=== PATIENT | male | born 1945 | race Caucasian/White ===

== ENCOUNTER → 2016-08-31 | Outpatient (CLI) | payer MEDICARE ==
[2016-08-31 15:13] LABS: CHCM 33.9; HCT 40.8 % (39.0-53.0); HDW 2.29; HGB 14.1 gm/dL (13.0-17.5); MCH 31.7 pg (25.0-35.0); MCHC 34.5 g/dL (31.0-37.0); MCV 91.9 fL (80.0-100.0); Mean Platelet Volume 7.7; RBC 4.44 m/uL (4.30-5.90); RDW 13.2 % (11.5-15.5)
[2016-08-31 15:22] LABS: Anion Gap 13 mmol/L; Blood Urea Nitrogen 20 mg/dL (9-20); Calcium 9.6 mg/dL (8.4-10.2); Carbon Dioxide 25 mmol/L (22-30); Chloride 109 mmol/L (98-107); Glucose 96 mg/dL (74-99); Non-African American GFR(MDRD) >60 (>60 ml/min/1.73 sqM); Potassium 4.3 mmol/L (3.5-5.1); Sodium 147 mmol/L (137-145)
== END | disposition home or self-care (01) ==
LOC: LABWHC1 14:50
PROVIDERS: ATTEND Internal Medicine Clinical Cardiac Electrophysiology
DX: I25.5 Ischemic cardiomyopathy (principal)
CPT/HCPCS: 36415; 80048; 85027

== ENCOUNTER 2016-09-03 14:59 | Day surgery (SDC) | payer MEDICARE ==
[2016-08-31 11:27] VITALS: BMI 30.9
[~2016-09-03 14:59] MED LIST: LACTATED RINGERS 1,000 ML IV SCH; SODIUM CHLORIDE 0.9% 1,000 ML IV SCH; ceFAZolin 1,000 MG in SODIUM CHLORIDE 0.9% IRRIGATIO 250 ML IRRIGATION ONE; ceFAZolin 2 GM in SODIUM CHLORIDE 0.9% 100 ML IVPB ONE
[2016-09-03 15:25] VITALS: RESP 18
[2016-09-03] MEDS ORDERED: LIDOCAINE 1% INJ 10MG/ML (20 ML MDV) ONE (18:52)
[2016-09-03] MEDS ORDERED: MIDAZOLAM 2 MG/2 ML VIAL ONE (18:52)
[2016-09-03] MEDS ORDERED: KETAMINE 10 MG/ML 20 ML VIAL ONE (18:52)
[2016-09-03] MEDS ORDERED: fentaNYL (PF) 50 MCG/ML 2 ML AMP ONE (18:52)
[2016-09-03] MEDS ORDERED: PROPOFOL 10 MG/ML 20 ML VIAL IV ONE (18:52)
[2016-09-03] MEDS ORDERED: IV FLUID CONTINUATION 1,000 ML IV ONE (19:20)
[2016-09-03] MEDS ORDERED: LIDOCAINE 2% INJ 20 MG/ML SQ ONE ×2 (19:27→19:32)
[2016-09-03] MEDS ORDERED: LACTATED RINGERS 1,000 ML IV ONE (19:57)
[2016-09-03] MEDS ORDERED: IODIXANOL 320 MG/ML 100 ML IV ONE (20:18)
--- NOTE | 2016-09-03 20:24 | P.PCN ---
Preoperative Diagnosis: Procedure Right-sided ICD implant Patient requested right-sided implant instead of left-sided Indication for the procedure Coronary artery disease, old anterior wall ID status post coronary stenting several months back with ischemic cardio myopathy, anterior wall akinesis, CHF class II and frequent PVCs on stress testing, underlying hypertension and dyslipidemia ICD implant for primary prevention of sudden cardiac Procedure The right shoulder area was prepped and draped as a protocol. 1% lidocaine was used for local anesthesia. A frozen with incision was made parallel to the deltopectoral groove about 1.5 cm medial to it. The incision was carried down to the level of the pectoralis muscle. A subfascial pocket was made. The left axillary vein was accessed and a single-point under fluoroscopy and the appropriate sized to see sheath NavigatorMD single coil 59 cm DF for the lead was implanted in the RV apex. This is a [employer] model #0292, serial #[id number] The lead was secured to the underlying pectoralis fascia using 2 nonabsorbable sutures and then connected to the generator in [] [employer] GEN extended longevity model number D150, serial #[id number] Lead and the generator were placed in the subfascial pocket and the wound was closed in 3 layers and dressed per protocol DFT testing and anesthesia A shock and T wave protocol was used to induce ventricular fibrillation. This was adequately and appropriately detected at least sensitivity and successfully internally defibrillated with an 11 J shock 3 dropouts charge time 1.8 seconds sensitivity 1.5 mV no post shock noise The device was then programmed according to the [employer] programming with 3 zones of therapy Backup pacing at VVI 40 beats a minute Result Successful single-chamber ICD implantation for primary prevention of sudden cardiac in the setting of severe ischemic cardio myopathy with an ejection fraction of 35% chronic systolic dysfunction and CHF class II despite appropriate medical treatment for greater than 3 months Postoperative Diagnosis: Procedure(s) Performed: Implants: Disposition: floor Indications for Procedure: Operative Findings: Description of Procedure:
[2016-09-03] MEDS ORDERED: ACETAMINOPHEN IV (For NPO) 1,000 MG in EMPTY BAG 1 BAG IVPB ONE (20:32)
[2016-09-03] MEDS ORDERED: ACETAMINOPHEN TAB 325 MG TAB PO PRN (20:32)
[2016-09-03] MEDS ORDERED: ATORVASTATIN 80 MG TAB PO SCH (21:00)
[2016-09-03] MEDS: HYDROcodone/APAP 5-325MG 1 EACH TAB PO PRN (21:41)
[2016-09-03] MEDS: ceFAZolin 2 GM in SODIUM CHLORIDE 0.9% 100 ML IVPB SCH (21:41)
[2016-09-04] MEDS: HYDROcodone/APAP 5-325MG 1 EACH TAB PO PRN ×2 (03:06→08:31)
[2016-09-04] MEDS: ceFAZolin 2 GM in SODIUM CHLORIDE 0.9% 100 ML IVPB SCH ×3 (04:00→13:30)
--- NOTE | 2016-09-04 07:19 | XR ---
EXAMINATION TYPE: XR chest 2V DATE OF EXAM: 09/04/2016 HISTORY: Lead placement check. REFERENCE: Previous study dated 01/06/2016. FINDINGS: The lungs are overinflated. Heart size is upper limits of normal. There is some scarring or atelectasis at the left lung base. There is been interval placement of this unipolar pacemaker via a right subclavian approach. Its tip overlies the right ventricle. IMPRESSION: 1. I DO NOT SEE A POST PACEMAKER INSERTION COMPLICATION. 2. COPD. 3. SCARRING VERSUS ATELECTASIS, LEFT LUNG BASE. 4. BORDERLINE CARDIOMEGALY.
[2016-09-04] MEDS ORDERED: CARVEDILOL 3.125 MG TAB PO SCH (07:30)
--- NOTE | 2016-09-04 08:11 | P.DS ---
Providers Attending physician: Chidi Lares Primary care physician: [facility] Course: Patient is doing well from a cardiac standpoint. He denies any chest discomfort he has some mild tenderness over the right-sided ICD implant site and no chest discomfort no breathing trouble when he is lying comfortably in bed Chest x-ray is within normal limits. Vitals are stable He is afebrile 98.1F, blood pressure 142/75 mmHg, pulse rate in the 60s. Heart sounds S1 and S2 normal no murmurs no gallops Breath sounds are normal no rhonchi no crackles Abdomen is soft nontender Extremities warm no edema Impression Severe ischemic cardio myopathy that has not improved despite percutaneous revascularization and medical treatment despite the treatment. Of greater than 3-6 months Class II CHF coronary artery disease status post coronary stenting in the past Suggest Discharge home after completion of IV antibiotics and device interrogation Follow-up in the device clinic in 5 days, all instructions given Follow-up with Dr. Landers in 4-5 months Patient Condition at Discharge: Stable Plan - Discharge Summary New Discharge Prescriptions: Continue Aspirin 325 mg PO DAILY #30 tab Carvedilol [Coreg] 3.125 mg PO BID-W/MEALS #60 tab Lisinopril [Zestril] 10 mg PO DAILY #30 tab Spironolactone [Aldactone] 25 mg PO DAILY #30 tab Atorvastatin [Lipitor] 80 mg PO HS Clopidogrel [Plavix] 75 mg PO DAILY Nitroglycerin Sl Tabs [Nitrostat] 0.4 mg SL Q5M PRN PRN Reason: Chest Pain Loratadine-Pseudoeph 10-240 mg [Claritin-D 24 Hour] 1 each PO DAILY PRN PRN Reason: ALLERGY SX Discharge Medication List Aspirin 325 mg PO DAILY #30 tab 12/12/15 [Rx] Carvedilol [Coreg] 3.125 mg PO BID-W/MEALS #60 tab 12/12/15 [Rx] Lisinopril [Zestril] 10 mg PO DAILY #30 tab 12/12/15 [Rx] Spironolactone [Aldactone] 25 mg PO DAILY #30 tab 12/12/15 [Rx] Atorvastatin [Lipitor] 80 mg PO HS 01/06/16 [History] Clopidogrel [Plavix] 75 mg PO DAILY 01/06/16 [History] Nitroglycerin Sl Tabs [Nitrostat] 0.4 mg SL Q5M PRN 01/06/16 [History] Loratadine-Pseudoeph 10-240 mg [Claritin-D 24 Hour] 1 each PO DAILY PRN [History] Activity/Diet/Wound Care/Special Instructions: PATIENT EDUCATION MATERIAL Instructions following a heart rhythm device implant. 1. Keep dressing DRY for ONE week. You may cover the area with Saran or Cling Wrap, prior to a shower. 2. The dressing will be removed after one week in the Device Clinic @ [facility]. Absorbable sutures were used to close the wound. 3. Avoid raising the right arm above the shoulder level. [6 week restriction] 4. Avoid arm movements, like backscratching, rubbing the head, or pulling on a cord. (6 weeks restriction) 5. Gentle range of motion movements of the shoulder, closest to the incision should be performed to avoid a frozen shoulder. (Pendulum exercises of the shoulder) 6. The opposite arm may be used freely. 7. Avoid driving for 7 days. 8. Avoid activities such as golfing, swimming, weed whacking, lifting more than 10 pounds weight, bowling, gymnastics and weight training/lifting. (6 weeks restriction) 9. Activities such as wood chopping with an axe, pull-ups in the gymnasium, power lifting, arc-welding, being close to home induction cooktops will always be a problem. In case of any problems, please call [facility], Carmelina Tracey, @ [phone], Attention: Device Clinic f/u with dr. lares 4 months
[2016-09-04] MEDS ORDERED: LISINOPRIL 10 MG TAB PO SCH (09:00)
[2016-09-04] MEDS ORDERED: SPIRONOLACTONE 25 MG TAB PO SCH (09:00)
[2016-09-04] MEDS ORDERED: ASPIRIN 325 MG TAB PO SCH (09:00)
[2016-09-04] MEDS ORDERED: CLOPIDOGREL 75 MG TAB PO SCH (09:00)
[2016-09-04 11:54] VITALS: BP 138/76; PULSE 58; TEMP 97.9
== END 2016-09-04 15:30 | disposition home or self-care (01) ==
LOC: CATHEP 14:59 → 3OBS 20:21 → CATHEP 09-04 15:30
PROVIDERS: ATTEND Internal Medicine Clinical Cardiac Electrophysiology
DX: I25.5 Ischemic cardiomyopathy (principal); I25.10 Atherosclerotic heart disease of native coronary artery without angina pectoris; I11.0 Hypertensive heart disease with heart failure; I50.22 Chronic systolic (congestive) heart failure; Z00.6 Encounter for examination for normal comparison and control in clinical research program; I25.2 Old myocardial infarction; Z95.5 Presence of coronary angioplasty implant and graft; E78.5 Hyperlipidemia, unspecified; Z79.82 Long term (current) use of aspirin; Z79.899 Other long term (current) drug therapy
CPT/HCPCS: 93641; 33249; 71020; C1895; C1722; J2001 ×2; J2250; Q9967; J0690 ×3; J3010; J2704

== ENCOUNTER → 2019-04-28 | Outpatient (CLI) | payer MEDICARE ==
--- NOTE | 2019-04-30 21:51 | CT ---
EXAMINATION TYPE: CT brain wo con DATE OF EXAM: 04/28/2019 COMPARISON: None HISTORY: 73-year-old male headaches, fatigue, mood swings TECHNIQUE: Examination was done in axial plane without intravenous contrast. Coronal and sagittal r econstructions performed. CT DLP: 1090.4 mGycm Automated exposure control for dose reduction was used. FINDINGS: There is no evidence of acute intracranial hemorrhage, acute ischemic changes, mass, mass-effect, or extra-axial fluid collection. There is no effacement of cerebral sulci or basal subarachnoid cister ns. There is no hydrocephalus. There is no midline shift. Ge-white matter distinction is preserv ed. Mild to moderate bifrontal atrophy. Pineal gland calcifications. Rightward nasal septal deviation. Visualized paranasal sinuses and mastoid air cells appear clear. Or bits and globes are intact. IMPRESSION: [id number] bifrontal atrophy. No acute intracranial abnormality seen.
== END | disposition home or self-care (01) ==
LOC: RADCTMAIN 15:33
PROVIDERS: ATTEND Family Medicine
DX: G31.9 Degenerative disease of nervous system, unspecified (principal); R42 Dizziness and giddiness
CPT/HCPCS: 70450

== ENCOUNTER → 2019-11-22 | Outpatient (CLI) | payer MEDICARE ==
[~2019-11-22] MED LIST changes: -LACTATED RINGERS 1,000 ML IV SCH; +REGADENOSON 0.4 MG/5 ML SYRINGE IV ONE; -SODIUM CHLORIDE 0.9% 1,000 ML IV SCH; -ceFAZolin 1,000 MG in SODIUM CHLORIDE 0.9% IRRIGATIO 250 ML IRRIGATION ONE; -ceFAZolin 2 GM in SODIUM CHLORIDE 0.9% 100 ML IVPB ONE
--- NOTE | 2019-11-22 11:01 | NM ---
EXAMINATION TYPE: NM stress lexiscan cardiolite DATE OF EXAM: 11/22/2019 COMPARISON: NONE HISTORY: Chest pain TECHNIQUE: After the intravenous administration of 9.1 mCi Tc 99m Sestamibi - Cardiolite resting SPE CT images acquired 45 minutes post injection. The patient received 0.4mg Lexiscan, 25.8 mCi Tc 99m Sestamibi - Stress images obtained [address] injection FINDINGS: Review of stress and rest SPECT images demonstrates fixed defects involving the anterior, apical, inf erior, and septal portions of the myocardium with corresponding wall motion defects.. Gated analysis shows an estimated left ventricular ejection fraction of 37 %. IMPRESSION: 1. Multiple areas of fixed defects suggestive of remote infarction with no definite stress-induced re versibility. 2. Ejection fraction of only 37%.
--- NOTE | 2019-11-22 11:21 | P.STRESS ---
- Stress Test Note Stress Test Results/Findings: Exam Performed: NM stress lexiscan cardiolite Exam Date: 11/22/19 Reason for Exam: CARDIOMYOPATHY Height: 5 ft 8 in Weight: 90.718 kg Protocol: LEXISCAN CARDIOLITE Stage: N/A Duration of Exercise: N/A Resting Heart Rate: 72 Resting Blood Pressure: 159/87 Maximum Achieved Heart Rate: 87 Maximum Achieved Blood Pressure: 159/87 85% PMHR: 125 100% PMHR: 147 METS: N/A Technologist Comment: Stress Test Results/Findings: Baseline heart is 72 beats a minute, Baseline blood pressure 159/87 mmHg Baseline telemetry ECG shows sinus rhythm with ST segment or T-wave inversion inferolaterally. There is a 0.[address] depression in the lateral precordial leads Patient received Lexiscan infusion per protocol No significant change in heart rate and blood pressure No new ECG abnormalities No arrhythmias New Portion reported separately
== END | disposition home or self-care (01) ==
LOC: RADNMMAIN 07:40
PROVIDERS: ATTEND Family Medicine
DX: R94.39 Abnormal result of other cardiovascular function study (principal)
CPT/HCPCS: 93017; 78452; A9500; J2785

== ENCOUNTER → 2020-07-22 | Outpatient (CLI) | payer MEDICARE ==
--- NOTE | 2020-07-22 16:20 | CT ---
EXAMINATION TYPE: CT abdomen wo con DATE OF EXAM: 07/22/2020 HISTORY: Renal mass CT DLP: 536 mGycm. Automated Exposure Control for Dose Reduction was Utilized. TECHNIQUE: CT scan of the abdomen is performed with oral but without IV contrast. COMPARISON: NONE FINDINGS: Within the limitations of a non-contrast study, the following observations are made. LUNG BASES: Partial visualization of right coronary artery calcification and/or stent. Partial visual ization of right ventricular pacemaker/fibrillator lead. Small to tiny right pleural effusion partial ly imaged. LIVER/GB: No significant abnormality is appreciated. PANCREAS: No significant abnormality is seen. SPLEEN: No significant abnormality is seen. ADRENALS: No significant abnormality is seen. KIDNEYS: There is 1.8 cm round low dense lesion exophytically from the upper pole anteriorly left kid enid image 19 series 3 consistent with simple appearing benign thin-walled cyst. There is a larger 5.8 cm simple benign thin-walled cyst laterally from mid to lower pole level right kidney . Some central thin-walled parapelvic cyst right kidney are felt present. There is a 12 mm calculus lower pole leve l right kidney coronal image 48. No hydronephrosis noted bilaterally. No concerning solid or cystic r enal mass is seen on noncontrast CT. BOWEL: Oral contrast does not reach colonic level. No suspicious small or large bowel dilatation. LYMPH NODES: No greater than 1cm abdominal lymph nodes are appreciated. OSSEOUS STRUCTURES: Postsurgical change L4-S1 levels with posterior interpedicular rods and screws an d artificial disc material is present. OTHER: No significant additional abnormality is seen. IMPRESSION: No concerning solid or cystic renal mass identified on noncontrast CT. The renal findings as noted above. Clinical correlation advised.
== END | disposition home or self-care (01) ==
LOC: RADCTMAIN 14:51
PROVIDERS: ATTEND Family Medicine
DX: N28.89 Other specified disorders of kidney and ureter (principal)
CPT/HCPCS: 74150

== ENCOUNTER 2021-05-15 17:49 | Observation (INO) | payer MEDICARE ==
[2021-05-15 17:59] VITALS: TEMP 98.2
[2021-05-15 18:31] LABS: Basophils % (A) 0 %; Eosinophils # (A) 0.3 k/uL (0-0.7); Eosinophils % (A) 4 %; HCT 44.9 % (39.0-53.0); HGB 15.1 gm/dL (13.0-17.5); Lymphocytes # (A) 1.5 k/uL (1.0-4.8); Lymphocytes % (A) 19 %; MCH 31.2 pg (25.0-35.0); MCHC 33.6 g/dL (31.0-37.0); Mean Platelet Volume 7.7; Monocytes # (A) 0.4 k/uL (0-1.0); Monocytes % (A) 5 %; Neutrophils # (A) 5.8 k/uL (1.3-7.7); Neutrophils % (A) 71 %; Platelet Count 187 k/uL (150-450); RBC 4.83 m/uL (4.30-5.90); RDW 13.9 % (11.5-15.5); WBC 8.2 k/uL (3.8-10.6)
[2021-05-15 18:42] LABS: Albumin 4.2 g/dL (3.5-5.0); Calcium 8.9 mg/dL (8.4-10.2); Potassium 4.1 mmol/L (3.5-5.1); Total Bilirubin 0.6 mg/dL (0.2-1.3); Total Protein 7.3 g/dL (6.3-8.2)
[2021-05-15 18:48] LABS: INR 0.9 (<1.2); Prothrombin Time 10.2 sec (9.0-12.0)
[2021-05-15 18:54] LABS: Partial Thromboplastin Time 21.2 sec (22.0-30.0)
--- NOTE | 2021-05-15 18:58 | XR ---
EXAMINATION TYPE: XR chest 2V DATE OF EXAM: 05/15/2021 6:25 PM COMPARISON: 09/04/2016 TECHNIQUE: XR chest 2V Frontal and lateral views of the chest. CLINICAL INDICATION:Male, 76 years old with history of Chest Pain; FINDINGS: Lungs/Pleura: There is no evidence of pleural effusion, focal consolidation, or pneumothorax. Pulmonary vascularity: Unremarkable. Heart/mediastinum: Cardiomediastinal silhouette is unremarkable. Single-lead cardiac conduction devic e overlying the left hemithorax with lead projecting over the right ventricle. Musculoskeletal: No acute osseous pathology. Other findings: None IMPRESSION: No acute cardiopulmonary disease/process.
--- NOTE | 2021-05-15 19:43 | ED ---
General Adult HPI - General Chief complaint: Chest Pain Stated complaint: chest pain Time Seen by Provider: 05/15/21 18:07 Source: patient, RN notes reviewed, old records reviewed Mode of arrival: ambulatory Limitations: no limitations - History of Present Illness Initial comments: 76-year-old male history of CAD, history of pacemaker defibrillator placement. He is presenting with chest pain. Pain is central chest substernal. It does not radiate. It is associated with mild dyspnea. He states it is worse with deep inspiration. He denies vomiting or diaphoresis. He states he has been present for the past several days. No lower extremity pain or swelling. - Related Data Home Medications Medication Instructions Recorded Confirmed Atorvastatin [Lipitor] 80 mg PO DAILY 01/06/16 05/15/21 Aspirin EC [Ecotrin Low Dose] 81 mg PO HS 05/15/21 05/15/21 Sacubitril/Valsartan [Entresto 24 1 tab PO BID 05/15/21 05/15/21 mg-26 mg Tablet] Sertraline [Zoloft] 100 mg PO DAILY 05/15/21 05/15/21 Sertraline [Zoloft] 200 mg PO DAILY 05/15/21 05/15/21 amLODIPine [Norvasc] 2.5 mg PO DAILY 05/15/21 05/15/21 Allergies Allergy/AdvReac Type Severity Reaction Status Date / Time No Known Allergies Allergy Verified 05/15/21 20:02 Review of Systems ROS Statement: Those systems with pertinent positive or pertinent negative responses have been documented in the HPI. ROS Other: All systems not noted in ROS Statement are negative. Past Medical History Past Medical History: Hearing Disorder / Deafness, Hyperlipidemia, Hypertension, Myocardial Infarction (ID), Osteoarthritis (OA), Sleep Apnea/CPAP/BIPAP Additional Past Medical History / Comment(s): Pt admitted to [facility] 12/09/15 with nonstemi-PTCA with stent to LAD, EF 20-25% with life vest, another stent to RCA 12/31/15. Back Pain. IGOR, USES CPAP. Allergic Rhinitis. 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 Last Myocardial Infarction Date:: 12/09/15 History of Any Multi-Drug Resistant Organisms: None Reported Past Surgical History: Appendectomy, Back Surgery, Heart Catheterization With Stent, Orthopedic Surgery Additional Past Surgical History / Comment(s): 12/31/15 PTCA with stent to RCA. Other surgical hx: Back surgery x 3-fusion, bronchoscopy, colonosocpy, 12-09-15 heart cath with stent to lad, bilateral shoulder rotator cuff repairs Past Anesthesia/Blood Transfusion Reactions: No Reported Reaction Date of Last Stent Placement:: 12/31/15 Past Psychological History: Depression, Panic Disorder Smoking Status: Former smoker Past Alcohol Use History: Occasional Past Drug Use History: None Reported - Past Family History Father Family Medical History: Cancer Additional Family Medical History / Comment(s): pancreatic cancer Mother Family Medical History: Cancer, Diabetes Mellitus General Exam Limitations: no limitations General appearance: alert, in no apparent distress Head exam: Present: atraumatic, normocephalic Eye exam: Present: normal appearance, PERRL ENT exam: Present: normal exam Neck exam: Present: normal inspection. Absent: tenderness Respiratory exam: Present: normal lung sounds bilaterally. Absent: respiratory distress, wheezes Cardiovascular Exam: Present: regular rate, normal rhythm GI/Abdominal exam: Present: soft. Absent: distended, tenderness, guarding Extremities exam: Present: normal inspection, normal capillary refill Neurological exam: Present: alert, oriented X3, CN II-XII intact. Absent: motor sensory deficit Psychiatric exam: Present: normal affect, normal mood Skin exam: Present: warm, dry, intact. Absent: cyanosis, diaphoretic Course Vital Signs 05/15/21 05/15/21 05/15/21 17:56 18:59 20:00 Temperature 98.2 F Pulse Rate 70 68 66 Respiratory 16 16 16 Rate Blood Pressure 149/84 130/80 O2 Sat by Pulse 97 97 97 Oximetry EKG Findings - EKG Comments: EKG Findings:: EKG: Sinus rhythm T-wave inversion throughout the precordium V3 through V6 as well as inferior leads [address] segment elevation. Rate of 72, OK interval 182, QRS duration 94, QTC 422. Medical Decision Making - Medical Decision Making 76-year-old male presenting with a substernal chest pain which is been present for the past several days. He describes this as a squeezing sensation. He states it is worse with deep inspiration. He has a history of CAD. He denies lower extremity pain or swelling. He has a EKG showing sinus rhythm with T-wave inversion no ST segment elevation. His CBC is unremarkable, CMP is unremar kable. Initial troponin is negative. He does have an elevated d-dimer as 0.83, he's taken for CT angiography which is negative for pulmonary embolism. Given his risk factors he will be kept in observation for serial cardiac enzymes, telemetry, cardiology consultation. He will be admitted to Dr. Hawk who is aware of the patient. - Lab Data Result diagrams: 05/15/21 18:21 05/15/21 18:21 Lab Results 05/15/21 05/15/21 05/15/21 Range/Units 18:21 18:21 18:21 WBC 8.2 (3.8-10.6) k/uL RBC 4.83 (4.30-5.90) m/uL Hgb 15.1 (13.0-17.5) gm/dL Hct 44.9 (39.0-53.0) % MCV 93.0 (80.0-100.0) fL MCH 31.2 (25.0-35.0) pg MCHC 33.6 (31.0-37.0) g/dL RDW 13.9 (11.5-15.5) % Plt Count 187 (150-450) k/uL MPV 7.7 Neutrophils % 71 % Lymphocytes % 19 % Monocytes % 5 % Eosinophils % 4 % Basophils % 0 % Neutrophils # 5.8 (1.3-7.7) k/uL Lymphocytes # 1.5 (1.0-4.8) k/uL Monocytes # 0.4 (0-1.0) k/uL Eosinophils # 0.3 (0-0.7) k/uL Basophils # 0.0 (0-0.2) k/uL PT 10.2 (9.0-12.0) sec INR 0.9 (<1.2) APTT 21.2 L (22.0-30.0) sec D-Dimer 0.83 H (<0.60) mg/L FEU Sodium 140 (137-145) mmol/L Potassium 4.1 (3.5-5.1) mmol/L Chloride 106 (98-107) mmol/L Carbon Dioxide 25 (22-30) mmol/L Anion Gap 9 mmol/L BUN 22 H (9-20) mg/dL Creatinine 0.97 (0.66-1.25) mg/dL Est GFR (CKD-EPI)AfAm 89 (>60 ml/min/1.73 sqM) Est GFR (CKD-EPI)NonAf 77 (>60 ml/min/1.73 sqM) Glucose 89 (74-99) mg/dL Calcium 8.9 (8.4-10.2) mg/dL Magnesium 2.0 (1.6-2.3) mg/dL Total Bilirubin 0.6 (0.2-1.3) mg/dL AST 22 (17-59) U/L ALT 13 (4-49) U/L Alkaline Phosphatase 96 (38-126) U/L Troponin I (0.000-0.034) ng/mL Total Protein 7.3 (6.3-8.2) g/dL Albumin 4.2 (3.5-5.0) g/dL 05/15/21 Range/Units 18:21 WBC (3.8-10.6) k/uL RBC (4.30-5.90) m/uL Hgb (13.0-17.5) gm/dL Hct (39.0-53.0) % MCV (80.0-100.0) fL MCH (25.0-35.0) pg MCHC (31.0-37.0) g/dL RDW (11.5-15.5) % Plt Count (150-450) k/uL MPV Neutrophils % % Lymphocytes % % Monocytes % % Eosinophils % % Basophils % % Neutrophils # (1.3-7.7) k/uL Lymphocytes # (1.0-4.8) k/uL Monocytes # (0-1.0) k/uL Eosinophils # (0-0.7) k/uL Basophils # (0-0.2) k/uL PT (9.0-12.0) sec INR (<1.2) APTT (22.0-30.0) sec D-Dimer (<0.60) mg/L FEU Sodium (137-145) mmol/L Potassium (3.5-5.1) mmol/L Chloride (98-107) mmol/L Carbon Dioxide (22-30) mmol/L Anion Gap mmol/L BUN (9-20) mg/dL Creatinine (0.66-1.25) mg/dL Est GFR (CKD-EPI)AfAm (>60 ml/min/1.73 sqM) Est GFR (CKD-EPI)NonAf (>60 ml/min/1.73 sqM) Glucose (74-99) mg/dL Calcium (8.4-10.2) mg/dL Magnesium (1.6-2.3) mg/dL Total Bilirubin (0.2-1.3) mg/dL AST (17-59) U/L ALT (4-49) U/L Alkaline Phosphatase (38-126) U/L Troponin I <0.012 (0.000-0.034) ng/mL Total Protein (6.3-8.2) g/dL Albumin (3.5-5.0) g/dL Disposition Clinical Impression: Chest pain Disposition: ADMITTED IP TO THIS [facility] Condition: Stable Is patient prescribed a controlled substance at d/c from ED?: No Referrals: Zayra Hwak DO [Primary Care Provider] - 1-2 days Decision to Admit Reason: Admit from EC Decision Date: 05/15/21 Decision Time: 21:07
--- NOTE | 2021-05-15 20:52 | CT ---
EXAMINATION TYPE: CT angio chest DATE OF EXAM: 05/15/2021 COMPARISON: None HISTORY: Chest pain, MINDY, positive D-dimer. CT DLP: 420.1 mGycm Automated exposure control for dose reduction was used. CONTRAST: Performed with IV Contrast, patient injected with 100 mL of Isovue 370. Images obtained from the thoracic inlet to the diaphragm with IV contrast. There are Three-D postproc essed images. There is some mild interstitial density at the posterior lung bases. There is mild atelectasis at the lung bases. There is small amount of fluid in the right major fissure. There is no mediastinal adenopathy. Thoracic aorta is atheromatous. No aneurysm. There is normal cont rast opacification of the pulmonary arteries. There are no filling defects. The ascending aorta measu res 3.5 cm. The thoracic spine is intact. No compression fracture. There is multilevel anterior bridging osteophy te formation. The sternum is intact. There are no hilar masses. The upper abdominal soft tissues appear intact. IMPRESSION: There is small loculated right pleural effusion. Interstitial mild infiltrate in subsegmental atelect asis at the lung bases. No evidence of pulmonary embolism. Mild pulmonary emphysema. No suspicious pulmonary mass.
[2021-05-15] MEDS ORDERED: NALOXONE 0.4 MG/ML 1 ML VIAL IV PRN (21:04)
[2021-05-15] MEDS ORDERED: ACETAMINOPHEN TAB 325 MG TAB PO PRN (21:04)
[2021-05-16 06:02] VITALS: RESP 16
[2021-05-16 08:29] VITALS: BP 158/87; PULSE 67
[2021-05-16] MEDS ORDERED: amLODIPine 2.5 MG TAB PO SCH (09:00)
[2021-05-16] MEDS ORDERED: SACUBITRIL/VALSARTAN 24 MG-26 MG TABLET PO SCH (09:00)
[2021-05-16] MEDS ORDERED: SERTRALINE 100 MG TAB PO SCH (09:00)
--- NOTE | 2021-05-16 12:42 | P.CRDCN ---
History of Present Illness History of present illness: This is Dr. Lares dictating a consult on this patient The patient was interviewed and examined IMPRESSION / ASSESSMENT: Atypical chest discomfort Normal cardiac enzymes Right-sided pleural effusion, small No evidence for pulmonary embolism PLAN: From a cardiac standpoint continue cardiac medications check hemoglobin A1c and lipids He is a mild current myopathy ICD in situ From a) hemoglobin home today in follow-up with az as an outpatient HPI Patient presented with right-sided chest discomfort which is pleuritic in nature His d-dimer was mildly elevated but the computed tomography scan did not show any evidence for pulmonary embolism A small right-sided pleural effusion was noted with bibasilar atelectasis versus infiltrate 3 cardiac enzymes are normal No new EKG abnormalities noted Patient has known history of coronary artery disease ROS: No fever chills or rigors, no cough, phlegm or expectoration, no nausea, vomiting or diarrhea, no hematuria, dysuria, no musculoskeletal complaints, no strokes or seizures, no skin lesions. EXAMINATION: Heart rate 60 beats minute, normal respirations resting comfortably in a chair Blood pressure normal 124/61 mmHg Normal heart sounds no murmurs or gallop drop Normal breath sounds Extremities warm No edema REVIEW OF LABS, ECG & MEDICAL DATA Normal white count 8.2 thousand, hemoglobin 15, platelet count 187,000 D-dimer 0.8, mildly elevated Normal electrolytes Normal renal function Normal troponins 3 Past Medical History Past Medical History: Hearing Disorder / Deafness, Hyperlipidemia, Hypertension, Myocardial Infarction (DC), Osteoarthritis (OA), Sleep Apnea/CPAP/BIPAP Additional Past Medical History / Comment(s): Pt admitted to [facility] 12/09/15 with nonstemi-PTCA with stent to LAD, EF 20-25% with life vest, another stent to RCA 12/31/15. Back Pain. IGOR, USES CPAP. Allergic Rhinitis. 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 Last Myocardial Infarction Date:: 12/09/15 History of Any Multi-Drug Resistant Organisms: None Reported Past Surgical History: Appendectomy, Back Surgery, Heart Catheterization With Stent, Orthopedic Surgery Additional Past Surgical History / Comment(s): 12/31/15 PTCA with stent to RCA. Other surgical hx: Back surgery x 3-fusion, bronchoscopy, colonosocpy, 6 heart cath with stent to lad, bilateral shoulder rotator cuff repairs Past Anesthesia/Blood Transfusion Reactions: No Reported Reaction Date of Last Stent Placement:: 12/31/15 Past Psychological History: Depression, Panic Disorder Additional Psychological History / Comment(s): [place] [facility] [place] Smoking Status: Former smoker Past Alcohol Use History: Occasional Additional Past Alcohol Use History / Comment(s): quit smoking 1995, STARTED SMOKING AGE 16, SMOKED -2 1/2 to 3 PPD Past Drug Use History: None Reported - Past Family History Father Family Medical History: Cancer Additional Family Medical History / Comment(s): pancreatic cancer Mother Family Medical History: Cancer, Diabetes Mellitus Medications and Allergies Home Medications Medication Instructions Recorded Confirmed Type Atorvastatin [Lipitor] 80 mg PO DAILY 01/06/16 05/15/21 History Aspirin EC [Ecotrin Low Dose] 81 mg PO HS 05/15/21 05/15/21 History Sacubitril/Valsartan [Entresto 24 1 tab PO BID 05/15/21 05/15/21 History mg-26 mg Tablet] Sertraline [Zoloft] 100 mg PO DAILY 05/15/21 05/15/21 History Sertraline [Zoloft] 200 mg PO DAILY 05/15/21 05/15/21 History amLODIPine [Norvasc] 2.5 mg PO DAILY 05/15/21 05/15/21 History Allergies Allergy/AdvReac Type Severity Reaction Status Date / Time No Known Allergies Allergy Verified 05/15/21 20:02 Physical Exam Vitals: Vital Signs Temp Pulse Pulse Resp BP BP Pulse Ox 05/16/21 08:28 67 16 158/87 98 05/16/21 05:59 65 16 143/90 98 05/16/21 04:25 64 18 124/61 95 05/16/21 03:21 60 18 114/49 96 05/15/21 23:26 67 20 138/60 95 05/15/21 20:00 66 16 130/80 97 05/15/21 18:59 68 16 149/84 97 05/15/21 17:56 98.2 F 70 16 97 Intake and Output 05/15/21 05/16/21 05/16/21 22:59 06:59 14:59 Other: Weight 81.647 kg Results 05/15/21 18:21 05/15/21 18:21 Cardiac Enzymes 05/15/21 05/15/21 05/16/21 Range/Units 18:21 18:21 00:00 AST 22 (17-59) U/L Troponin I <0.012 <0.012 (0.000-0.034) ng/mL 05/16/21 Range/Units 07:00 AST (17-59) U/L Troponin I <0.012 (0.000-0.034) ng/mL Coagulation 05/15/21 Range/Units 18:21 PT 10.2 (9.0-12.0) sec APTT 21.2 L (22.0-30.0) sec CBC 05/15/21 Range/Units 18: WBC 8.2 (3.8-10.6) k/uL RBC 4.83 (4.30-5.90) m/uL Hgb 15.1 (13.0-17.5) gm/dL Hct 44.9 (39.0-53.0) % Plt Count 187 (150-450) k/uL Comprehensive Metabolic Panel 05/15/21 Range/Units 18: Sodium 140 (137-145) mmol/L Potassium 4.1 (3.5-5.1) mmol/L Chloride 106 (98-107) mmol/L Carbon Dioxide 25 (22-30) mmol/L BUN 22 H (9-20) mg/dL Creatinine 0.97 (0.66-1.25) mg/dL Glucose 89 (74-99) mg/dL Calcium 8.9 (8.4-10.2) mg/dL AST 22 (17-59) U/L ALT 13 (4-49) U/L Alkaline Phosphatase 96 (38-126) U/L Total Protein 7.3 (6.3-8.2) g/dL Albumin 4.2 (3.5-5.0) g/dL Intake and Output 05/15/21 05/16/21 05/16/21 22:59 06:59 14:59 Other: Weight 81.647 kg 05/15/21 18:21 05/15/21 18:21
--- NOTE | 2021-05-16 16:31 | P.HPIM ---
History of Present Illness H&P Date: 05/16/21 Chief Complaint: Chest pain H&P and Discharge Summary This is a 76-year-old gentleman with past medical history of hypertension, hyperlipidemia, CAD, [place], cardiac stents, cardiomyopathy with EF of 20-25%, AICD, deafness, obstructive sleep apnea with outpatient CPAP, panic disorder, former nicotine dependence presented to the ER with chest "squeezing" to the right side of midsternum, worsened with deep inspiration, muscle tenderness near/around pacemaker site. Denies heavy lifting or pulling, denies trauma,fall. Denies diaphoresis, denies lightheadedness, dizziness or shortness of breath-. Denies focal deficits. Denies syncope .Denies cough or congestion. Denies phlegm production. Denies fever or chills. Denies nausea vomiting or diarrhea. Denies abdominal pain .Serial cardiac enzymes normal, EKG reviewed by cardiology- reporting sinus rhythm with no new noted abnormalities ,d-dimer mildly elevated, chest CTA reported no evidence of PE, mild atelectasis at the bases, small amount of fluid in the right major fissure. Vital signs stable, afebrile, normal WBC, maintaining O2 sats in the high 90s on room air. Normal electrolytes. Renal function normal. Review of Systems ROS Statement: Those systems with pertinent positive or pertinent negative responses have been documented in the HPI. ROS Other: All systems not noted in ROS Statement are negative. Past Medical History Past Medical History: Hearing Disorder / Deafness, Hyperlipidemia, Hypertension, Myocardial Infarction (IL), Osteoarthritis (OA), Sleep Apnea/CPAP/BIPAP Additional Past Medical History / Comment(s): Pt admitted to [facility] 12/09/15 with nonstemi-PTCA with stent to LAD, EF 20-25% with life vest, another stent to RCA 12/31/15. Back Pain. IGOR, USES CPAP. Allergic Rhinitis. 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 Last Myocardial Infarction Date:: 12/09/15 History of Any Multi-Drug Resistant Organisms: None Reported Past Surgical History: Appendectomy, Back Surgery, Heart Catheterization With Stent, Orthopedic Surgery Additional Past Surgical History / Comment(s): 12/31/15 PTCA with stent to RCA. Other surgical hx: Back surgery x 3-fusion, bronchoscopy, colonosocpy, 12-09-15 heart cath with stent to lad, bilateral shoulder rotator cuff repairs Past Anesthesia/Blood Transfusion Reactions: No Reported Reaction Date of Last Stent Placement:: 12/31/15 Past Psychological History: Depression, Panic Disorder Additional Psychological History / Comment(s): [place] [facility] [place] Smoking Status: Former smoker Past Alcohol Use History: Occasional Additional Past Alcohol Use History / Comment(s): quit smoking 1995, STARTED SMOKING AGE 16, SMOKED -2 1/2 to 3 PPD Past Drug Use History: None Reported - Past Family History Father Family Medical History: Cancer Additional Family Medical History / Comment(s): pancreatic cancer Mother Family Medical History: Cancer, Diabetes Mellitus Medications and Allergies Home Medications Medication Instructions Recorded Confirmed Type Atorvastatin [Lipitor] 80 mg PO DAILY 01/06/16 05/15/21 History Aspirin EC [Ecotrin Low Dose] 81 mg PO HS 05/15/21 05/15/21 History Sacubitril/Valsartan [Entresto 24 1 tab PO BID 05/15/21 05/15/21 History mg-26 mg Tablet] Sertraline [Zoloft] 100 mg PO DAILY 05/15/21 05/15/21 History Sertraline [Zoloft] 200 mg PO DAILY 05/15/21 05/15/21 History amLODIPine [Norvasc] 2.5 mg PO DAILY 05/15/21 05/15/21 History Diclofenac Sodium Gel [Voltaren 2 gm TOPICAL QID #100 gm 05/16/21 Rx Gel] Allergies Allergy/AdvReac Type Severity Reaction Status Date / Time No Known Allergies Allergy Verified 05/15/21 20:02 Physical Exam Vitals: Vital Signs Temp Pulse Pulse Resp BP BP Pulse Ox 05/16/21 08:28 67 16 158/87 98 05/16/21 05:59 65 16 143/90 98 05/16/21 04:25 64 18 124/61 95 05/16/21 03:21 60 18 114/49 96 05/15/21 23:26 67 20 138/60 95 05/15/21 20:00 66 16 130/80 97 05/15/21 18:59 68 16 149/84 97 05/15/21 17:56 98.2 F 70 16 97 Intake and Output 03/17/22 03/18/22 03/18/22 22:59 06:59 14:59 Other: Weight 81.647 kg PHYSICAL EXAM: VITAL SIGNS: [As above] GENERAL: Sitting up in chair, no acute distress HEENT: Conjunctivae normal. eyes normal. MMM NECK: No JVD. No thyroid enlargement. No LNs CARDIOVASCULAR: S1, S2 regular. No murmur RESPIRATION: Breath sounds diminished in the bases. No rhonchi or crackles. No bronchial breathing. ABDOMEN: Soft, nontender . No guarding. no masses palpable. No ascites, No hepatosplenomegaly.Bowel sounds heard. LEGS: No edema. no swelling PSYCHIATRY: Alert and oriented X3, mood and affect normal. NERVOUS SYSTEM: Cranial N 2-12 grossly normal. Moves all 4 limbs. No focal deficits. Strength and sensation grossly intact. Skin: Warm and dry, no rash. Results CBC & Chem 7: 05/15/21 18:21 05/15/21 18:21 Labs: Abnormal Lab Results - Last 24 Hours (Table) 05/15/21 05/15/21 Range/Units 18:21 18:21 APTT 21.2 L (22.0-30.0) sec D-Dimer 0.83 H (<0.60) mg/L FEU BUN 22 H (9-20) mg/dL Thrombosis Risk Factor Assmnt - Choose All That Apply Each Risk Factor Represents 3 Points: Age 75 years or older Thrombosis Risk Factor Assessment Total Risk Factor Score: 3 Thrombosis Risk Factor Assessment Level: Moderate Risk Assessment and Plan Assessment: Chest pain, atypical as per cardiology. possibly muscle skeletal - over/near pacemaker site . Ischemic cardiomyopathy, EF 20-25%, history of AICD Chronic systolic CHF Obstructive sleep apnea Gastroesophageal reflux disease Atelectasis Panic disorder Prior nicotine dependence Plan: Continue on current medication regime ,monitoring and symptomatic treatment. Patient will be discharged home today in stable condition with guarded prognosis pending final DC recommendations and clearance per cardiology. Discharge Medication List Atorvastatin [Lipitor] 80 mg PO DAILY 01/06/16 [History] Aspirin EC [Ecotrin Low Dose] 81 mg PO HS 05/15/21 [History] Sacubitril/Valsartan [Entresto 24 mg-26 mg Tablet] 1 tab PO BID 05/15/21 [History] Sertraline [Zoloft] 100 mg PO DAILY 05/15/21 [History] Sertraline [Zoloft] 200 mg PO DAILY 05/15/21 [History] amLODIPine [Norvasc] 2.5 mg PO DAILY 05/15/21 [History] Diclofenac Sodium Gel [Voltaren Gel] 2 gm TOPICAL QID #100 gm 05/16/21 [Rx] The impression and plan of care has been dictated as directed. : I performed a history and examination of this patient, discussed the same with the dictator. I agree with the dictator's note ,documented as a scribe. Any additional findings or plans will be noted.
[2021-05-16] MEDS ORDERED: ATORVASTATIN 80 MG TAB PO SCH (21:00)
[2021-05-16] MEDS ORDERED: ASPIRIN 81 MG PO SCH (21:00)
== END 2021-05-16 10:16 ==
LOC: EC 17:49 → 6NMEDSUR 21:05
PROVIDERS: ADMIT Family Medicine; ATTEND Family Medicine
DX: R07.2 Precordial pain (principal); I11.0 Hypertensive heart disease with heart failure; I50.22 Chronic systolic (congestive) heart failure; I25.5 Ischemic cardiomyopathy; G47.33 Obstructive sleep apnea (adult) (pediatric); K21.9 Gastro-esophageal reflux disease without esophagitis; J98.11 Atelectasis; F41.0 Panic disorder [episodic paroxysmal anxiety]; Z87.891 Personal history of nicotine dependence; J43.9 Emphysema, unspecified; I25.10 Atherosclerotic heart disease of native coronary artery without angina pectoris; R79.89 Other specified abnormal findings of blood chemistry; M54.9 Dorsalgia, unspecified; J30.9 Allergic rhinitis, unspecified; F32.A Depression, unspecified; M19.90 Unspecified osteoarthritis, unspecified site; H91.90 Unspecified hearing loss, unspecified ear; E78.5 Hyperlipidemia, unspecified; I25.2 Old myocardial infarction; Z79.899 Other long term (current) drug therapy; Z79.82 Long term (current) use of aspirin; Z77.090 Contact with and (suspected) exposure to asbestos; Z95.810 Presence of automatic (implantable) cardiac defibrillator; Z95.5 Presence of coronary angioplasty implant and graft; Z80.0 Family history of malignant neoplasm of digestive organs; Z83.3 Family history of diabetes mellitus
CPT/HCPCS: 99285; 36415; 93005; 85379; 80053; 83735; 84484 ×2; 85025; 85610; 85730; 71046; 71275; G0378 ×2; Q9967

== ENCOUNTER → 2021-07-29 | Outpatient (CLI) | payer MEDICARE ==
--- NOTE | 2021-07-29 12:45 | FL ---
EXAMINATION TYPE: FL barium swallow w video DATE OF EXAM: 07/29/2021 CLINICAL HISTORY: 76-year-old male R13.10, dysphagia, trouble swallowing and food sticking in throat. TECHNIQUE: Deglutition study is performed utilizing thin liquid barium, nectar thick liquid barium, barium thick pudding, and barium coated cracker. COMPARISON: None. Total fluoroscopy time: 1 minute 9 seconds. Total images: None. Real-time fluoroscopy support was provided to speech pathology. FINDINGS: Bulky anterior endplate bridging spondylosis is present particularly at C3-C4 and C6-C7. Findings sug gest DISH. The bulky anterior spurring at C3-C4 prevents epiglottic inversion due to physical obstruc tion. This also results in prominent posterior impression on the hypopharynx. Episodes of penetration are noted with multiple consistencies. No aspiration is seen. IMPRESSION: 1. DISH but with bulky anterior endplate spondylosis at C3-C4. This prevents epiglottic inversion due to prasad physical obstruction and causes a prominent posterior impression on to the back wall of the hypopharynx. Additional bulky spondylosis anteriorly at C6-C7 also presses onto the back wall of the upper cervical esophagus. 2. Episodes of transient penetration with multiple consistencies. No aspiration. Please refer to speech pathology report for further details and recommendations.
== END | disposition home or self-care (01) ==
LOC: RADFLMAIN 10:47
PROVIDERS: ATTEND Otolaryngology
DX: M47.812 Spondylosis without myelopathy or radiculopathy, cervical region (principal)
CPT/HCPCS: 74230

== ENCOUNTER → 2022-02-02 | Outpatient (CLI) | payer MEDICARE ==
[2022-02-02 14:59] LABS: African American GFR (CKD) 72.5 (60.0-200.0); Anion Gap 10.6 mmol/L (10.00-18.00); BUN/Creat Ratio 14.39 Ratio (12.00-20.00); Blood Urea Nitrogen 16.4 mg/dL (9.0-27.0); Carbon Dioxide 28.1 mmol/L (20.0-27.5); Magnesium 2.1 mg/dL (1.5-2.4); Non-African American GFR(CKD) 62.6 (60.0-200.0); Potassium 5.5 mmol/L (3.5-5.5)
== END | disposition home or self-care (01) ==
LOC: LABWHC1 09:55
PROVIDERS: ATTEND Internal Medicine Interventional Cardiology
DX: I10 Essential (primary) hypertension (principal)
CPT/HCPCS: 36415; 80048; 83735

== ENCOUNTER → 2023-01-01 | Outpatient (CLI) | payer MEDICARE ==
[2023-01-01 16:26] LABS: C Reactive Protein 0.5 mg/dL (0.00-0.80)
[2023-01-01 17:17] LABS: Albumin 4.1 d/dL (3.8-4.9); Protein, Total 6.6 d/dL (6.2-8.2)
== END | disposition home or self-care (01) ==
LOC: LABWHC1 10:09
PROVIDERS: ATTEND Psychiatry & Neurology Neurology
DX: G62.9 Polyneuropathy, unspecified (principal); R53.1 Weakness
CPT/HCPCS: 36415; 82550; 82607; 82747; 83036; 84165; 85652; 86140; 86334; 86618

== ENCOUNTER → 2023-01-14 | Outpatient (CLI) | payer MEDICARE ==
--- NOTE | 2023-01-14 13:47 | CT ---
EXAMINATION TYPE: CT cervical spine wo con DATE OF EXAM: 01/14/2023 COMPARISON: None HISTORY: spinal stenosis CT DLP: 525.[address] of the cervical spine was performed with bone and soft tissue window settings submitted . Coronal and sagittal reconstruction is obtained. There is normal alignment and prevertebral soft tissues. I do not see evidence for fracture or subluxation. The lung apices are clear. C2-3: Mild degenerative disc space narrowing. Ventral and dorsal spondylosis. No central stenosis or herniation. C3-4: Mild degenerative disc space narrowing. Large anterior osteophyte. Posterior disc bulge with mi ld effacement ventral thecal sac. No evidence for herniation or central stenosis.. Degenerative choi e of the cervical apophyseal joints resulting in right foraminal encroachment. C4-5: Moderate degenerative disc space narrowing. Posterior disc bulges partially capsulated spur res ulting disc endplate complex. Mild effacement of the ventral thecal sac. Left foraminal encroachment. No evidence for central stenosis. C5-6:Moderate degenerative disc space narrowing. Posterior disc bulges partially capsulated spur resu lting disc endplate complex. Mild effacement of the ventral thecal sac. Left foraminal encroachment. No evidence for central stenosis. C6-7:Moderate degenerative disc space narrowing. Posterior disc bulges partially capsulated spur resu lting disc endplate complex. Mild effacement of the ventral thecal sac. No significant foraminal encr oachment. No evidence for central stenosis. C7-T1: Within normal limits IMPRESSION: 1. Findings compatible with diffuse idiopathic skeletal hyperostosis 2. Multilevel degenerative disc space narrowing and disc bulging and partially encapsulating spur. No evidence for central stenosis. Varying degrees of foraminal encroachment.
== END | disposition home or self-care (01) ==
LOC: RADCTMAIN 11:08
PROVIDERS: ATTEND Psychiatry & Neurology Neurology
DX: M48.02 Spinal stenosis, cervical region (principal); M50.321 Other cervical disc degeneration at C4-C5 level; R29.2 Abnormal reflex
CPT/HCPCS: 72125

== ENCOUNTER → 2023-06-25 | Outpatient (CLI) | payer MEDICARE ==
--- NOTE | 2023-06-25 18:47 | FL ---
EXAMINATION TYPE: FL barium swallow w video DATE OF EXAM: 06/25/2023 CLINICAL HISTORY: 78-year-old male R13.14, Dysphagia. TECHNIQUE: Deglutition study is performed utilizing thin liquid barium, nectar thick liquid barium, barium thick pudding, and barium coated cracker. Total fluoroscopy time 2 minutes 5 seconds. Total images: None. Real-time fluoroscopy support was provided to speech pathology. Total DAP: 50 mGycm2. COMPARISON: None. FINDINGS: There is severe bridging spondylosis anteriorly throughout the cervical spine. Prolific, space occupy ing anterior spurring is present at C2-C3 which prevents epiglottic inversion. There is aspiration of thin liquids and pureed consistencies along with penetration with all consiste ncies. Mild residuals remaining. IMPRESSION: 1. Extensive anterior bridging bone along the cervical spine. Large space-occupying anterior spurring at C2-C3 prevents epiglottic inversion. 2. This contributes to aspiration of thin liquids and pureed consistencies. Penetration with all cons istencies. Mild residuals. Please refer to speech therapist notes for further details if necessary.
== END | disposition home or self-care (01) ==
LOC: RADFLMAIN 10:51
PROVIDERS: ATTEND Otolaryngology
DX: R13.14 Dysphagia, pharyngoesophageal phase (principal)
CPT/HCPCS: 74230

== ENCOUNTER → 2023-07-19 | Outpatient (CLI) | payer MEDICARE ==
--- NOTE | 2023-07-22 11:48 | CT ---
EXAMINATION TYPE: CT cervical spine wo con CT DLP: 554.5 mGycm, Automated exposure control for dose reduction was used. DATE OF EXAM: 07/19/2023 2:18 PM COMPARISON: 01/14/2023. CLINICAL INDICATION:Male, 78 years old with history of M48.12 ANKYLOSING HYPEROSTOSIS; PHH, neck pain TECHNIQUE: Axial CT images from the skull base to the inferior aspect of T2 we obtained without intra venous contrast. Coronal and sagittal reformatted images were also reviewed. Contrast used: mL of , (if blank None) Oral contrast used: (if blank None) FINDINGS: Fracture: None. Osseous structures: Multilevel degenerative disc disease changes with endplate spurring and disc oste ophyte complex's. Severe anterior osteophytes along the spine impress upon the esophagus. Vertebral alignment: Alignment within normal limits. Spinal canal/Neural Foramina: No evidence of significant spinal canal narrowing. No evidence for sign ificant neural foraminal stenosis. Neck soft tissues: Prevertebral soft tissues are within normal limits. Other: The airway is patent. The lung apices are clear. Cardiac conduction device leads visualized. M ild atherosclerosis of the carotid bifurcations. IMPRESSION: 1. No evidence of cervical spine fracture. 2. Severe multilevel degenerative disc disease. With large osteophyte impressing upon the posterior a spect of the esophagus. 2. No evidence of significant spinal canal no neural foraminal stenosis.
== END | disposition home or self-care (01) ==
LOC: RADCTMAIN 14:03
PROVIDERS: ATTEND Otolaryngology
DX: M50.30 Other cervical disc degeneration, unspecified cervical region (principal); M48.12 Ankylosing hyperostosis [Forestier], cervical region; M25.78 Osteophyte, vertebrae
CPT/HCPCS: 72125

== ENCOUNTER 2023-07-23 12:28 | Emergency (ER) | payer MEDICARE ==
[2023-07-23 13:02] VITALS: TEMP 98.2
--- NOTE | 2023-07-23 13:14 | ED ---
Dizziness HPI - General Source: patient, RN notes reviewed Mode of arrival: ambulatory Limitations: no limitations <Angelica Soriano - Last Filed: 07/23/23 13:14> <Obdulio Schroeder - Last Filed: 07/23/23 18:34> - General Chief Complaint: Dizziness Stated Complaint: Fall-Dizziness Time Seen by Provider: 07/23/23 13:12 - History of Present Illness Initial Comments: Quick [id number] male presenting with dizziness x 1 day. States he stopped taking all of his medication for months and decided to restart all of h is medications yesterday. His niece states she suspects he has doubled up on some medications. Patient states he is on medications for chronic back pain, neuropathy, hypertension, and CHF (Angelica Soriano) Dictation was produced using [employer] dictation software. please excuse any grammatical, word or spelling errors. Chief Complaint: 78-year-old male who presents to the ER for back pain and dizziness History of Present Illness: Patient 78-year-old male states that he is here today for feeling dizzy. He describes his dizziness as like feeling hung over. Patient was bored yesterday decided to take some of his medications. He did not realize that some of his medications were duplicates. He has not taken his medications in several days. Patient also has secondary complaint of lower back pain. Patient denies any pain. He has history of pacemaker. Denies any hi story of cardiomyopathy. Patient has known history of coronary artery disease. The ROS documented in this emergency department record has been reviewed and confirmed by me. Those systems with pertinent positive or negative responses have been documented in the HPI. All other systems are other negative and/or noncontributory. (Obdulio Schroeder) - Related Data Home Medications Medication Instructions Recorded Confirmed Cyclobenzaprine [Flexeril] 10 mg PO HS 07/23/23 07/23/23 DULoxetine HCL [Cymbalta] 30 mg PO DAILY 07/23/23 07/23/23 Furosemide [Lasix] 20 mg PO DAILY 07/23/23 07/23/23 Gabapentin [Neurontin] 400 mg PO BID 07/23/23 07/23/23 Loratadine [Claritin] 10 mg PO DAILY 07/23/23 07/23/23 Prazosin HCl [Minipress] 2 mg PO HS 07/23/23 07/23/23 Sacubitril/Valsartan [Entresto 97 1 tab PO BID 07/23/23 07/23/23 mg-103 mg Tablet] Spironolactone [Aldactone] 25 mg PO DAILY 07/23/23 07/23/23 Allergies Allergy/AdvReac Type Severity Reaction Status Date / Time No Known Allergies Allergy Verified 07/23/23 15:48 Review of Systems ROS Other: All systems not noted in ROS Statement are negative. <Angelica Soriano - Last Filed: 07/23/23 13:14> ROS Other: All systems not noted in ROS Statement are negative. <Obdulio Schroeder - Last Filed: 07/23/23 18:34> ROS Statement: Those systems with pertinent positive or pertinent negative responses have been documented in the HPI. Past Medical History Past Medical History: Hearing Disorder / Deafness, Hyperlipidemia, Hypertension, Myocardial Infarction ([place]), Osteoarthritis (OA), Sleep Apnea/CPAP/BIPAP Additional Past Medical History / Comment(s): Pt admitted to [facility] 12/09/15 with nonstemi-PTCA with stent to LAD, EF 20-25% with life vest, another stent to RCA 12/31/15. Back Pain. IGOR, USES CPAP. Allergic Rhinitis. 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 CMP. SEE DR Tinoco Last Myocardial Infarction Date:: 12/09/15 History of Any Multi-Drug Resistant Organisms: None Reported Past Surgical History: Appendectomy, Back Surgery, Heart Catheterization With S tent, Orthopedic Surgery Additional Past Surgical History / Comment(s): 12/31/15 PTCA with stent to RCA. Other surgical hx: Back surgery x 3-fusion, bronchoscopy, colonosocpy, 12-09-15 heart cath with stent to lad, bilateral shoulder rotator cuff repairs Past Anesthesia/Blood Transfusion Reactions: No Reported Reaction Date of Last Stent Placement:: 12/31/15 Past Psychological History: Depression, Panic Disorder Smoking Status: Former smoker Past Alcohol Use History: Occasional Past Drug Use History: None Reported - Past Family History Father Family Medical History: Cancer Additional Family Medical History / Comment(s): pancreatic cancer Mother Family Medical History: Cancer, Diabetes Mellitus <Angelica Soriano - Last Filed: 07/23/23 13:14> General Exam Limitations: no limitations <Angelica Soriano - Last Filed: 07/23/23 13:14> <Obdulio Schroeder - Last Filed: 07/23/23 18:34> - General Exam Comments Initial Comments: Visual Physical Exam Vital signs reviewed General: Well-appearing, nontoxic, no acute distress. Head: Normocephalic, atraumatic Eyes: PERRLA, EOMI ENT: Airway patent Chest: Nonlabored breathing Skin: No visual rash, normal skin tone Neuro: Alert and oriented 3 Musculoskeletal: No gross abnormalities (Angelica Soriano) PHYSICAL EXAM: General Impression: Alert and oriented x3, not in acute distress HEENT: Normocephalic atraumatic, extra-ocular movements intact, pupils equal and reactive to light bilaterally, mucous membranes moist. Cardiovascular: Heart regular rate and rhythm Chest: Able to complete full sentences, no retractions, no tachypnea Abdomen: abdomen soft, non-tender, non-distended, no organomegaly Musculoskeletal: Pulses present and equal in all extremities, no peripheral edema Motor: no focal deficits noted Neurological: CN II-XII grossly intact, no focal motor or sensory deficits noted Skin: Intact with no visualized rashes Psych: Normal affect and mood (Obdulio Schroeder) Course Vital Signs 07/23/23 07/23/23 12:42 15:51 Temperature 98.2 F Pulse Rate 82 86 Respiratory 20 18 Rate Blood Pressure 109/71 110/70 O2 Sat by Pulse 97 97 Oximetry EKG Findings - EKG Comments: EKG Findings:: My EKG interpretation: Ventricular rate 77, sinus rhythm,. 161, cures 92, QTc 4 1. No MI prolongation, no QTC prolongation, no ST or T-wave changes noted. EKG compared to May 15, 2021 showing no changes. Overall, this EKG is unremarkable <Obdulio Schroeder - Last Filed: 07/23/23 18:34> Medical Decision Making <Angelica Soriano - Last Filed: 07/23/23 13:14> - Lab Data Result diagrams: 07/23/23 13:23 07/23/23 13:23 <Obdulio Schroeder - Last Filed: 07/23/23 18:34> - Medical Decision Making I completed the quick note portion of this chart signed Angelica Soriano PA-C (Angelica Soriano) Was pt. sent in by a medical professional or institution (, PA, [facility], urgent care, hospital, or residential...) When possible be specific @ -No Did you speak to anyone other than the patient for history (EMS, parent, family, police, friend...)? What history was obtained from this source @ -No Did you review nursing and triage notes (agree or disagree)? Why? @ -I reviewed and agree with nursing and triage notes Were old charts reviewed (outside hosp., previous admission, EMS record, old EKG, old radiological studies, urgent care reports/EKG's, residential records)? Report findings @ -No old charts were reviewed Differential Diagnosis (chest pain, altered mental status, abdominal pain women, abdominal pain men, vaginal bleeding, musculoskeletal, weakness, fever, dyspnea, syncope, headache, dizziness, GI bleed, back pain, seizure, CVA, palpatations, mental health)? @ -Differential Dizziness: Benign paroxysmal positional Vertigo, Menieres disease, otitis media, acoustic neuroma, vertebrobasilar insufficiency, cerebellar stroke, encephalitis, hypovolemic, arrhythmia, coronary artery syndrome, anemia, this is not meant to be an all-inclusive list EKG interpreted by me (3pts min.). @ -See above X-rays interpreted by me (1pt min.). @ -Lumbar spine x-rays unremarkable CT interpreted by me (1pt min.). @ -None done U/S interpreted by me (1pt. min.). @ -None done What testing was considered but not performed or refused? (CT, X-rays, U/S, labs)? Why? @ -None What meds were considered but not given or refused? Why? @ -None Did you discuss the management of the patient with other professionals (professionals i.e. , RENZO, [facility], lab, RT, psych nurse, group social worker, hard tile setter apprentice, teacher, credit or loans officer, case manager specialist)? Give summary @ -No Was smoking cessation discussed for >3mins.? @ -No Was critical care preformed (if so, how long)? @ -No Were there social determinants of health that impacted care today? How? (Homelessness, low income, unemployed, alcoholism, drug addiction, transportation, low edu. Level, literacy, decrease access to med. care, [place] [facility], rehab)? @ -No Was there de-escalation of care discussed even if they declined (Discuss DNR or withdrawal of care, Hospice)? DNR status @ -No What co-morbidities impacted this encounter? (DM, HTN, Smoking, COPD, CAD, Cancer, CVA, ARF, Chemo, Hep., AIDS, mental health diagnosis, sleep apnea, morbid obesity)? @ -None Was patient admitted / discharged? Hospital course, mention meds given and route, prescriptions, significant lab abnormalities, going to OR and other pertinent info. @ -78-year-old male presents emergency department with dizziness. Patient states that he excellently took some of his medications that he has not taken in a while. His medications are his usual home medications. Vital signs upon arrival are within acceptable limits. Patient well-appearing at the bedside. He complains of atraumatic back pain. He has no high risk features. Laboratory evaluation obtained. He has elevated BUN to creatinine ratio suggesting dehydration. His electrolytes are normal. Patient observed in emergency department for 6 hours. H patient reevaluated at 6:30 PM found to be stable c ondition. Patient is agreeable for discharge. Undiagnosed new problem with uncertain prognosis? @ -No Drug Therapy requiring intensive monitoring for toxicity (Heparin, Nitro, Insulin, Cardizem)? @ -No Were any procedures done? @ -No Diagnosis/symptom? Acute, or Chronic, or Acute on Chronic? Uncomplicated (without systemic symptoms) or Complicated (systemic symptoms)? @ -Dizziness Side effects of treatment? @ -No Exacerbation, Progression, or Severe Exacerbation? @ -No Poses a threat to life or bodily function? How? (Chest pain, [place], [place], pneumonia, PE, COPD, DKA, ARF, appy, cholecystitis, CVA, Diverticulitis, Homicidal, Suicidal, threat to staff... and all critical care pts) @ -No (Obdulio Schroeder) - Lab Data Lab Results 07/23/23 07/23/23 Range/Units 13:23 13:23 WBC 8.3 (3.8-10.6) k/uL RBC 4.88 (4.30-5.90) m/uL Hgb 15.4 (13.0-17.5) gm/dL Hct 45.4 (39.0-53.0) % MCV 93.0 (80.0-100.0) fL MCH 31.7 (25.0-35.0) pg MCHC 34.0 (31.0-37.0) g/dL RDW 13.5 (11.5-15.5) % Plt Count 197 (150-450) k/uL MPV 7.6 Neutrophils % 76 % Lymphocytes % 15 % Monocytes % 5 % Eosinophils % 3 % Basophils % 0 % Neutrophils # 6.3 (1.3-7.7) k/uL Lymphocytes # 1.2 (1.0-4.8) k/uL Monocytes # 0.4 (0-1.0) k/uL Eosinophils # 0.3 (0-0.7) k/uL Basophils # 0.0 (0-0.2) k/uL Sodium 139 (137-145) mmol/L Potassium 4.2 (3.5-5.1) mmol/L Chloride 105 (98-107) mmol/L Carbon Dioxide 24 (22-30) mmol/L Anion Gap 10 mmol/L BUN 31 H (9-20) mg/dL Creatinine 0.86 (0.66-1.25) mg/dL Est GFR (CKD-EPI)AfAm >90 (>60 ml/min/1.73 sqM) Est GFR (CKD-EPI)NonAf 84 (>60 ml/min/1.73 sqM) Glucose 108 H (74-99) mg/dL Calcium 9.2 (8.4-10.2) mg/dL Total Bilirubin 0.6 (0.2-1.3) mg/dL AST 19 (17-59) U/L ALT 13 (4-49) U/L Alkaline Phosphatase 98 (38-126) U/L Total Protein 7.4 (6.3-8.2) g/dL Albumin 4.3 (3.5-5.0) g/dL Disposition <Angelica Soriano - Last Filed: 07/23/23 13:14> Is patient prescribed a controlled substance at d/c from ED?: No Time of Disposition: 18:32 <Obdulio Schroeder - Last Filed: 07/23/23 18:34> Clinical Impression: Dehydration Disposition: HOME SELF-CARE Condition: Good Instructions (If sedation given, give patient instructions): Dizziness (ED) Referrals: Sam Hawk MD [Primary Care Provider] - 1-2 days
[2023-07-23 14:15] LABS: Basophils % (A) 0 %; Eosinophils # (A) 0.3 k/uL (0-0.7); Eosinophils % (A) 3 %; HCT 45.4 % (39.0-53.0); HGB 15.4 gm/dL (13.0-17.5); Lymphocytes # (A) 1.2 k/uL (1.0-4.8); Lymphocytes % (A) 15 %; MCH 31.7 pg (25.0-35.0); Mean Platelet Volume 7.6; Monocytes # (A) 0.4 k/uL (0-1.0); Monocytes % (A) 5 %; Neutrophils # (A) 6.3 k/uL (1.3-7.7); Neutrophils % (A) 76 %; Platelet Count 197 k/uL (150-450); RBC 4.88 m/uL (4.30-5.90); RDW 13.5 % (11.5-15.5); WBC 8.3 k/uL (3.8-10.6)
[2023-07-23 14:20] LABS: ALT 13 U/L (4-49); AST 19 U/L (17-59); African American GFR (CKD) >90 (>60 ml/min/1.73 sqM); Albumin 4.3 g/dL (3.5-5.0); Alkaline Phosphatase 98 U/L (38-126); Anion Gap 10 mmol/L; Blood Urea Nitrogen 31 mg/dL (9-20); Calcium 9.2 mg/dL (8.4-10.2); Carbon Dioxide 24 mmol/L (22-30); Chloride 105 mmol/L (98-107); Glucose 108 mg/dL (74-99); Non-African American GFR(CKD) 84 (>60 ml/min/1.73 sqM); Potassium 4.2 mmol/L (3.5-5.1); Sodium 139 mmol/L (137-145); Total Bilirubin 0.6 mg/dL (0.2-1.3); Total Protein 7.4 g/dL (6.3-8.2)
[2023-07-23] MEDS: SODIUM CHLORIDE 0.9% 1,000 ML IV STA (15:29)
[2023-07-23] MEDS: HYDROcodone/APAP 5-325MG 1 EACH TAB PO STA (15:29)
[2023-07-23 15:55] VITALS: RESP 18
--- NOTE | 2023-07-23 17:33 | XR ---
EXAMINATION TYPE: XR lumbar spine 2 or 3V DATE OF EXAM: 07/23/2023 COMPARISON: None HISTORY: Back pain fall TECHNIQUE: 3 view lumbar spine FINDINGS: There are 5 lumbar-type vertebral bodies. L1-L3 pedicles are intact. L5 4 to S1 pedicles andujar ve pedicle screws and fixation hardware. Vertebral body alignment is preserved. Vertebral body height s are preserved. T12-L1 3 4 disc spaces are preserved. IMPRESSION: 1. No acute osseous abnormality lumbar spine
[2023-07-23] MEDS: ACET/COD 300 MG/30 MG STARTER PACK 6 TAB BTL PO STA (18:51)
[2023-07-23 19:10] VITALS: BP 110/76; PULSE 90
== END 2023-07-23 19:02 | disposition home or self-care (01) ==
LOC: EC 12:28
DX: E86.0 Dehydration (principal); M54.50 Low back pain, unspecified; W19.XXXA Unspecified fall, initial encounter; Z87.891 Personal history of nicotine dependence
CPT/HCPCS: 36415; 72100; 80053; 85025; 93005; 96360; 99284

== ENCOUNTER 2023-09-08 17:46 | Observation (INO) | payer MEDICARE ==
--- NOTE | 2023-09-08 18:19 | ED ---
General Adult HPI - General Chief complaint: Syncope Stated complaint: syncope Time Seen by Provider: 09/08/23 17:59 Source: patient Mode of arrival: EMS Limitations: no limitations - History of Present Illness Initial comments: Patient is a 78-year-old male past medical history ICD, CHF, presenting today for syncopal episode. Patient states that at 1:00 this afternoon he was walking when he suddenly experienced blackness in his vision causing him to fall towards the ground, this happened briefly so he caught himself on his hands and knees, he did not hit his head. This happened a second time just prior to arrival in the emergency department when his vision blacked out briefly causing him to fall again. Again patient understands and use denies head or neck trauma. Patient denies headache, dizziness, endorses mild lightheadedness with standing suddenly but otherwise currently does not endorse lightheadedness, denies palpitations, chest pain, shortness of breath, lower extremity swelling, new numbness, weakness, abdominal pain, nausea, vomiting, diarrhea, black or bloody stools. He states this is never happened to him before. No recent travel surgeries or hospitalizations. Patient is not currently on blood thinners. - Related Data Home Medications Medication Instructions Recorded Confirmed Cyclobenzaprine [Flexeril] 10 mg PO HS 07/23/23 09/08/23 DULoxetine HCL [Cymbalta] 30 mg PO DAILY 07/23/23 09/08/23 Furosemide [Lasix] 20 mg PO DAILY 07/23/23 09/08/23 Gabapentin [Neurontin] 400 mg PO BID 07/23/23 09/08/23 Loratadine [Claritin] 10 mg PO DAILY 07/23/23 09/08/23 Prazosin HCl [Minipress] 2 mg PO HS 07/23/23 09/08/23 Sacubitril/Valsartan [Entresto 97 1 tab PO BID 07/23/23 09/08/23 mg-103 mg Tablet] Spironolactone [Aldactone] 25 mg PO DAILY 07/23/23 09/08/23 Allergies Allergy/AdvReac Type Severity Reaction Status Date / Time No Known Allergies Allergy Verified 09/08/23 20:26 Review of Systems ROS Statement: Those systems with pertinent positive or pertinent negative responses have been documented in the HPI. ROS Other: All systems not noted in ROS Statement are negative. Constitutional: Denies: fever, chills Eyes: Denies: vision change Respiratory: Denies: dyspnea Cardiovascular: Reports: syncope. Denies: chest pain, palpitations, dyspnea on exertion, edema Gastrointestinal: Denies: abdominal pain, nausea, vomiting, diarrhea, melena, hematochezia Neurological: Reports: as per HPI Past Medical History Past Medical History: Hearing Disorder / Deafness, Hyperlipidemia, Hypertension, Myocardial Infarction (NM), Osteoarthritis (OA), Sleep Apnea/CPAP/BIPAP Additional Past Medical History / Comment(s): Pt admitted to [facility] 12/09/15 with nonstemi-PTCA with stent to LAD, EF 20-25% with life vest, another stent to RCA 12/31/15. Back Pain. IGOR, USES CPAP. Allergic Rhinitis. 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 Last Myocardial Infarction Date:: 12/09/15 History of Any Multi-Drug Resistant Organisms: None Reported Past Surgical History: Appendectomy, Back Surgery, Heart Catheterization With Stent, Orthopedic Surgery Additional Past Surgical History / Comment(s): 12/31/15 PTCA with stent to RCA. Other surgical hx: Back surgery x 3-fusion, bronchoscopy, colonosocpy, 12-09-15 heart cath with stent to lad, bilateral shoulder rotator cuff repairs Past Anesthesia/Blood Transfusion Reactions: No Reported Reaction Date of Last Stent Placement:: 12/31/15 Past Psychological History: Depression, Panic Disorder Smoking Status: Former smoker Past Alcohol Use History: Occasional Past Drug Use History: None Reported - Past Family History Father Family Medical History: Cancer Additional Family Medical History / Comment(s): pancreatic cancer Mother Family Medical History: Cancer, Diabetes Mellitus General Exam - General Exam Comments Initial Comments: PE: CONSTITUTIONAL: no apparent distress, well appearing SKIN: warm, dry, no jaundice, hives or petechiae. Small abrasion to right knee EYES: pupils are equally round, extraocular movements intact without nystagmus, clear conjunctiva, non-icteric sclera HENT: normocephalic, atraumatic, moist mucus membranes, oropharynx clear without exudates NECK: Nontender and supple with no nuchal rigidity, no lymphadenopathy, full range of motion, no midline tenderness palpation, no signs of trauma, no radiculopathy when moving head through full range of motion PULMONARY: clear to auscultation without wheezes, rhonchi, or rales, normal excursion, no accessory muscle use and no stridor CARDIOVASCULAR: regular rate, rhythm, normal S1 and S2. No appreciated murmurs. Strong radial pulses with intact distal perfusion GASTROINTESTINAL: soft, non-tender, non-distended, no palpable masses, no rebound or guarding LYMPHATICS: no edema in lower extremities MUSCULOSKELETAL: Extremities have no gross deformity, no edema, redness, or swelling NEUROLOGIC: _a/o x 3, GCS 15, normal mentation and speech. Moves all extremities x 4 without motor or sensory deficit PSYCHIATRIC: _normal mood and affect, thought process is clear and linear Limitations: no limitations Course Vital Signs 09/08/23 09/08/23 09/09/23 17:48 18:45 02:44 Temperature 98.1 F Pulse Rate 76 57 L Respiratory 16 16 Rate Blood Pressure 100/56 118/60 Blood Pressure 115/63 [Left Arm Sitting] Blood Pressure 102/59 [Left Arm Standing] Blood Pressure 114/62 [Left Arm Supine] O2 Sat by Pulse 97 98 Oximetry 09/09/23 05:25 Temperature 97.4 F L Pulse Rate 65 Respiratory 14 Rate Blood Pressure 131/87 Blood Pressure [Left Arm Sitting] Blood Pressure [Left Arm Standing] Blood Pressure [Left Arm Supine] O2 Sat by Pulse 96 Oximetry - Reevaluation(s) Reevaluation #1: Creatinine slightly elevated from prior, 1.21 today, previously on 07/23/2023 0 .86 GFR 58 previously GFR 84 on 07/23/23. Patient has been given 500 cc IV fluids by EMS, given additional 500 cc IV fluids by us, will refrain from additional IV fluids due to patient's history of heart failure. Reviewed orthostatic vital signs, patient was orthostatic negative. 09/08/23 19:08 09/08/23 19:10 09/08/23 19:11 Reevaluation #2: 09/08/23 19:28 D-dimer 4.47, ordered CT angio chest to assess for PE, troponin less than 0.012 Reevaluation #3: 09/08/23 20:18 CTA chest reviewed, no PE, emphysematous changes in the left lobe, atelectasis in the right middle lobe, mild cardiomegaly coronary artery calcifications noted CTA was also reviewed by myself, I saw no evidence of PE. Due to patient's higher syncope, syncope without prodrome, plan for admission for echocardiogram and observation. Discussed with patient and son, they are agreeable with. Medical Decision Making - Medical Decision Making Was pt. sent in by a medical professional or institution (RENZO Tom, TRUCK SERVICE TECHNICIAN, urgent care, hospital, or chcf...) When possible be specific @ -No Did you speak to anyone other than the patient for history (EMS, parent, family, police, friend...)? What history was obtained from this source @ -No Did you review nursing and triage notes (agree or disagree)? Why? @ -I reviewed and agree with nursing and triage notes Were old charts reviewed (outside hosp., previous admission, EMS record, old EKG, old radiological studies, urgent care reports/EKG's, chcf records)? Report findings @ -Old charts reviewed, in an attempt to find type of pacemaker patient plate is in place, patient does have ICD, [employer] placed with Dr. Haque Differential Diagnosis (chest pain, altered mental status, abdominal pain women, abdominal pain men, vaginal bleeding, weakness, fever, dyspnea, syncope, headache, dizziness, GI bleed, back pain, seizure, CVA, palpatations, mental health, musculoskeletal)? @Differential Syncope: Valvular disease, pulmonary embolism, tachycardia, bradycardia, arrhythmia, pacemaker malfunction NM, hypovolemia, hemorrhage, anemia, hypoglycemia, this is not meant to be an all-inclusive list. EKG interpreted by me (3pts min.). @ -As above CT interpreted by me (1pt min.). @ -CT PE study read as negative by radiologist for PE, I reviewed CT PE study, I see no evidence of PE. Agree with reading by radiologist. U/S interpreted by me (1pt. min.). @ -None done What meds were considered but not given or refused? Why? @ -None Did you discuss the management of the patient with other professionals (professionals i.e. RENZO Tom, TRUCK SERVICE TECHNICIAN, lab, RT, psych nurse, licensed clinical social worker, floor technician, teacher, chemistry technical officer, caser shoe parts)? Give summary @ -No Was smoking cessation discussed for >3mins.? @ -No Was critical care preformed (if so, how long)? @ -No Were there social determinants of health that impacted care today? How? (Homelessness, low income, unemployed, alcoholism, drug addiction, transportation, low edu. Level, literacy, decrease access to med. care, residential, rehab)? @ -No Was there de-escalation of care discussed even if they declined (Discuss DNR or withdrawal of care, Hospice)? DNR status @ -No What co-morbidities impacted this encounter? (DM, HTN, Smoking, COPD, CAD, Cancer, CVA, ARF, Chemo, Hep., AIDS, mental health diagnosis, sleep apnea, morbid obesity)? @ -CAD, hypertension Was patient admitted / discharged? Hospital course, mention meds given and route, prescriptions, significant lab abnormalities, going to OR and other pertinent info. @ -Hospital course I have reviewed the patient's past medical records including triage summary, chief complaint, pertinent medical conditions, medications, surgical history, known medication allergies and previous visits to the emergency department. Patient seen and evaluated shortly after arrival. Patient is a 78-year-old male past medical history ACS/NM, heart failure, ICD in place presenting for syncope x 2 without prodrome, no head trauma. Initial evaluation showed overall well-a ppearing 78-year-old male no acute distress. He does present with a c-collar in place applied by EMS however patient states that he never fell and hit his head, landed on his knees with both episodes of brief LOC and was able to catch himself on his hands and knees, and denies any neck pain or radiculopathy, c- collar was removed he had no midline spinal tenderness and was able to range his neck through full range of motion without midline pain or radiculopathy. PE significant for overall well-appearing 78-year-old male in no acute distress. Lungs clear to auscultation bilaterally, normal S1-S2 on cardiac exam without murmurs, no JVD, 2+ radial pulses, skin pink and well-perfused, no lower extremity edema. Concern for electrolyte abnormality, pacemaker malfunction, arrhythmia, PE, orthostatic hypotension, anemia, hypoglycemia valvular disease. Patient did not describe any seizure like activity and episodes of "blacking out" occured over the course of a few seconds, patient able to remember each episode. Plan for comprenehsive labs and imaging, including D-dimer, troponin, EKG, CBC, CMP, lactic, urinalysis, magnesium level. Patient's workup significant for elevated D-dimer, increased creatinine, decreased GFR, slight LUIS. Due to significant elevation of D-dimer, syncopal episode a CT PE study was ordered despite LUIS. Patient received 500 cc IV fluids via EMS and additional 500 cc from us due to elevated creatinine. Negative orthostats.. CT PE study negative for PE. Admission for high risk syncope. Spoke with Dr. Hawk, he kindly accepts for admission. Drug Therapy requiring intensive monitoring for toxicity (Heparin, Nitro, Insulin, Cardizem)? @ -No Were any procedures done? @ -No Diagnosis/symptom? @ -Syncope, elevated creatinine Acute, or Chronic, or Acute on Chronic? @ -Acute Uncomplicated (without systemic symptoms) or Complicated (systemic symptoms)? @ -Complicated Side effects of treatment? @ -No Exacerbation, Progression, or Severe Exacerbation? @ -No Poses a threat to life or bodily function? How? (Chest pain, USA, NM, pneumonia, PE, COPD, DKA, ARF, appy, cholecystitis, CVA, Diverticulitis, Homicidal, Suicidal, threat to staff... and all critical care pts) @ -Yes - Lab Data Result diagrams: 09/09/23 06:40 09/09/23 06:40 Lab Results 09/08/23 09/08/23 09/08/23 Range/Units 18:23 18:23 18:23 WBC 7.6 (3.8-10.6) k/uL RBC 4.25 L (4.30-5.90) m/uL Hgb 13.3 (13.0-17.5) gm/dL Hct 40.6 (39.0-53.0) % MCV 95.6 (80.0-100.0) fL MCH 31.2 (25.0-35.0) pg MCHC 32.7 (31.0-37.0) g/dL RDW 13.4 (11.5-15.5) % Plt Count 170 (150-450) k/uL MPV 7.4 Neutrophils % 76 % Lymphocytes % 15 % Monocytes % 5 % Eosinophils % 2 % Basophils % 1 % Neutrophils # 5.8 (1.3-7.7) k/uL Lymphocytes # 1.2 (1.0-4.8) k/uL Monocytes # 0.4 (0-1.0) k/uL Eosinophils # 0.2 (0-0.7) k/uL Basophils # 0.0 (0-0.2) k/uL PT 10.9 (10.0-12.5) sec INR 1.0 (<1.2) APTT 23.7 (22.0-30.0) sec D-Dimer 4.47 H (<0.60) mg/L FEU Sodium 136 L (137-145) mmol/L Potassium 4.8 (3.5-5.1) mmol/L Chloride 103 (98-107) mmol/L Carbon Dioxide 27 (22-30) mmol/L Anion Gap 6 mmol/L BUN 26 H (9-20) mg/dL Creatinine 1.21 (0.66-1.25) mg/dL Est GFR (CKD-EPI)AfAm 67 (>60 ml/min/1.73 sqM) Est GFR (CKD-EPI)NonAf 58 (>60 ml/min/1.73 sqM) Glucose 128 H (74-99) mg/dL Calcium 8.7 (8.4-10.2) mg/dL Magnesium 2.0 (1.6-2.3) mg/dL Total Bilirubin 0.7 (0.2-1.3) mg/dL AST 18 (17-59) U/L ALT 9 (4-49) U/L Alkaline Phosphatase 75 (38-126) U/L Troponin I (0.000-0.034) ng/mL Total Protein 6.3 (6.3-8.2) g/dL Albumin 3.7 (3.5-5.0) g/dL Urine Color Urine Appearance (Clear) Urine pH (5.0-8.0) Ur Specific Adrian (1.001-1.035) Urine Protein (Negative) Urine Glucose (UA) (Negative) Urine Ketones (Negative) Urine Blood (Negative) Urine Nitrite (Negative) Urine Bilirubin (Negative) Urine Urobilinogen (<2.0) mg/dL Ur Leukocyte Esterase (Negative) 09/08/23 09/08/23 Range/Units 18:23 20:04 WBC (3.8-10.6) k/uL RBC (4.30-5.90) m/uL Hgb (13.0-17.5) gm/dL Hct (39.0-53.0) % MCV (80.0-100.0) fL MCH (25.0-35.0) pg MCHC (31.0-37.0) g/dL RDW (11.5-15.5) % Plt Count (150-450) k/uL MPV Neutrophils % % Lymphocytes % % Monocytes % % Eosinophils % % Basophils % % Neutrophils # (1.3-7.7) k/uL Lymphocytes # (1.0-4.8) k/uL Monocytes # (0-1.0) k/uL Eosinophils # (0-0.7) k/uL Basophils # (0-0.2) k/uL PT (10.0-12.5) sec INR (<1.2) APTT (22.0-30.0) sec D-Dimer (<0.60) mg/L FEU Sodium (137-145) mmol/L Potassium (3.5-5.1) mmol/L Chloride (98-107) mmol/L Carbon Dioxide (22-30) mmol/L Anion Gap mmol/L BUN (9-20) mg/dL Creatinine (0.66-1.25) mg/dL Est GFR (CKD-EPI)AfAm (>60 ml/min/1.73 sqM) Est GFR (CKD-EPI)NonAf (>60 ml/min/1.73 sqM) Glucose (74-99) mg/dL Calcium (8.4-10.2) mg/dL Magnesium (1.6-2.3) mg/dL Total Bilirubin (0.2-1.3) mg/dL AST (17-59) U/L ALT (4-49) U/L Alkaline Phosphatase (38-126) U/L Troponin I <0.012 (0.000-0.034) ng/mL Total Protein (6.3-8.2) g/dL Albumin (3.5-5.0) g/dL Urine Color Colorless Urine Appearance Clear (Clear) Urine pH 5.5 (5.0-8.0) Ur Specific Adrian 1.016 (1.001-1.035) Urine Protein Negative (Negative) Urine Glucose (UA) Negative (Negative) Urine Ketones Negative (Negative) Urine Blood Negative (Negative) Urine Nitrite Negative (Negative) Urine Bilirubin Negative (Negative) Urine Urobilinogen <2.0 (<2.0) mg/dL Ur Leukocyte Esterase Negative (Negative) Disposition Clinical Impression: Syncope Disposition: ADMITTED IP TO THIS HOSP Condition: Good Is patient prescribed a controlled substance at d/c from ED?: No
--- NOTE | 2023-09-08 18:41 | XR ---
EXAMINATION TYPE: XR chest 2V DATE OF EXAM: 09/08/2023 6:36 PM CLINICAL INDICATION:Male, 78 years old with history of syncope; [facility] COMPARISON: Chest radiographs from 05/15/2021 TECHNIQUE: XR chest 2V Frontal view of the chest. FINDINGS: Lungs/Pleura: There is no evidence of pleural effusion, focal consolidation, or pneumothorax. Pulmonary vascularity: Pulmonary vascular congestion. Heart/mediastinum: Cardiomediastinal silhouette is enlarged and stable. Atherosclerotic calcificatio ns are seen in the aorta. Single-lead cardiac conduction device overlying the right hemithorax with l ead projecting over the right ventricle. Musculoskeletal: No acute osseous pathology. Other findings: None Lines/Tubes: IMPRESSION: Cardiomegaly and mild pulmonary vascular congestion. Correlate with BNP for congestive heart failure.
[2023-09-08 18:47] LABS: Basophils % (A) 1 %; Eosinophils # (A) 0.2 k/uL (0-0.7); Eosinophils % (A) 2 %; HCT 40.6 % (39.0-53.0); HGB 13.3 gm/dL (13.0-17.5); Lymphocytes # (A) 1.2 k/uL (1.0-4.8); Lymphocytes % (A) 15 %; MCH 31.2 pg (25.0-35.0); MCHC 32.7 g/dL (31.0-37.0); MCV 95.6 fL (80.0-100.0); Mean Platelet Volume 7.4; Monocytes # (A) 0.4 k/uL (0-1.0); Monocytes % (A) 5 %; Neutrophils # (A) 5.8 k/uL (1.3-7.7); Neutrophils % (A) 76 %; Platelet Count 170 k/uL (150-450); RBC 4.25 m/uL (4.30-5.90); RDW 13.4 % (11.5-15.5); WBC 7.6 k/uL (3.8-10.6)
[2023-09-08 18:50] LABS: ALT 9 U/L (4-49); African American GFR (CKD) 67 (>60 ml/min/1.73 sqM); Albumin 3.7 g/dL (3.5-5.0); Anion Gap 6 mmol/L; Blood Urea Nitrogen 26 mg/dL (9-20); Calcium 8.7 mg/dL (8.4-10.2); Carbon Dioxide 27 mmol/L (22-30); Chloride 103 mmol/L (98-107); Glucose 128 mg/dL (74-99); Non-African American GFR(CKD) 58 (>60 ml/min/1.73 sqM); Sodium 136 mmol/L (137-145); Total Bilirubin 0.7 mg/dL (0.2-1.3); Total Protein 6.3 g/dL (6.3-8.2)
[2023-09-08 19:02] LABS: AST 18 U/L (17-59); Alkaline Phosphatase 75 U/L (38-126); Potassium 4.8 mmol/L (3.5-5.1)
[2023-09-08 19:13] LABS: Partial Thromboplastin Time 23.7 sec (22.0-30.0); Prothrombin Time 10.9 sec (10.0-12.5)
[2023-09-08] MEDS: SODIUM CHLORIDE 0.9% 500 ML 500 ML IV ONE (19:14)
--- NOTE | 2023-09-08 20:13 | CT ---
EXAMINATION TYPE: CT angio chest CT DLP: 432.8 mGycm, Automated exposure control for dose reduction was used. DATE OF EXAM: 09/08/2023 7:39 PM COMPARISON: Same day chest x-ray CLINICAL INDICATION:Male, 78 years old with history of syncope, elevated dimer; Positive dimer TECHNIQUE/CONTRAST: CTA scan of the thorax is performed with IV Contrast, patient injected with 80 mL of Isovue 370, MIP images are created and reviewed these are created on a separate workstation.. FINDINGS: There is adequate contrast bolus and timing. PULMONARY ARTERIES: There is no evidence for a filling defect within the pulmonary vasculature to sug gest acute pulmonary embolism. Right middle lobe arteries not well assessed due to complete RML atele ctasis. The pulmonary trunk is mildly enlarged, this can be seen with pulmonary hypertension. Trunk m easures 3.1 CM. AORTA: Moderate atherosclerotic calcifications of the aorta and branches. Ascending aorta is 3.6 CM, descending is 2.6 CM. No dissection. HEART: Mild cardiomegaly. Severe coronary arterial calcification, greatest on the left. No appreciab le pericardial effusion. There is a right chest single lead AICD which terminates in the RV. LOWER NECK: No significant findings. Possible tiny left thyroid hypodense nodularity. MEDIASTINUM: No enlarged nodes by CT size criteria. Suspect small sliding hiatal hernia. SOFT TISSUES/AXILLA: Mild bilateral gynecomastia changes. No axillary adenopathy. LUNGS/ PLEURA: Mild apical scarring. A moderate-sized emphysematous bulla extends from the left infra hilar region into the lower lobe, with several smaller adjacent bullae. Stranding of the lower lobe p eripheral to this favors scarring or atelectasis over infiltrate. Mild scarring or atelectasis in the right lung base. No pleural effusion or pneumothorax. AIRWAY: Central airways are patent. MUSCULOSKELETAL: Osteopenia and moderate diffuse degenerative changes. No acute abnormality seen. UPPER ABDOMEN: No acute or significant abnormality. A 2.4 cm cyst of the upper pole left kidney. Mild ly prominent left extrarenal pelvis is partially seen. IVC appears somewhat flattened, correlate for possible hypovolemia. Atherosclerotic calcifications of the visualized abdominal aorta and splenic ar raimundo. IMPRESSION: 1. No evidence of pulmonary embolism. 2. Emphysematous changes primarily localized to the central aspect left lower lobe. Strandy opacities peripheral to this favored to represent scarring or atelectasis over infiltrate. 3. Near-complete right middle lobe atelectasis. 4. Mild cardiomegaly. Severe coronary arterial calcification. AICD in place.
[2023-09-08] MEDS ORDERED: NALOXONE 0.4 MG/ML 1 ML VIAL IV PRN (20:23)
[2023-09-08] MEDS ORDERED: ACETAMINOPHEN TAB 325 MG TAB PO PRN (20:23)
[2023-09-08 20:48] LABS: Appearance,Urine Clear (Clear); Bilirubin,Urine Negative (Negative); Blood,Urine Negative (Negative); Color,Urine Colorless; Glucose,Urine (UA) Negative (Negative); Ketones,Urine Negative (Negative); Leukocyte Esterase,Urine Negative (Negative); Nitrite,Urine Negative (Negative); PH, Urine 5.5 (5.0-8.0); Protein,Urine Negative (Negative); Specific Gravity,Urine 1.016 (1.001-1.035); Urobilinogen,Urine <2.0 mg/dL (<2.0)
[2023-09-08] MEDS: CYCLOBENZAPRINE 10 MG TAB PO SCH (21:25)
[2023-09-08] MEDS: GABAPENTIN 400 MG CAP PO SCH (21:25)
[2023-09-08] MEDS: FAMOTIDINE 20 MG TAB PO SCH (21:25)
[2023-09-09 08:54] LABS: Basophils # (A) 0.06 X 10*3/uL (0.00-0.10); Basophils % (A) 0.8 %; Eosinophils # (A) 0.17 X 10*3/uL (0.04-0.35); Eosinophils % (A) 2.3 %; HCT 40.5 % (39.6-50.0); HGB 13.2 g/dL (13.0-17.0); Lymphocytes # (A) 2.01 X 10*3/uL (0.90-5.00); Lymphocytes % (A) 26.6 %; MCH 30.6 pg (27.0-32.0); MCHC 32.6 g/dL (32.0-37.0); MCV 93.8 FL (80.0-97.0); Mean Platelet Volume 8.9 FL (9.5-12.2); Monocytes # (A) 0.62 X 10*3/uL (0.20-1.00); Monocytes % (A) 8.2 %; NRBC Per 100 WBC 0 X 10*3/uL (0.00-0.01); Neutrophils # (A) 4.62 X 10*3/uL (1.80-7.70); Neutrophils % (A) 61.2 %; Platelet Count 172 X 10*3/uL (140-440); RBC 4.32 X 10*6/uL (4.40-5.60); RDW 13.2 % (11.5-14.5); WBC 7.55 X 10*3/uL (4.50-10.00)
[2023-09-09 09:00] LABS: ALT 6 U/L (10-49); AST 12 U/L (14-35); Albumin/Globulin Ratio 1.74 Ratio (1.60-3.17); Alkaline Phosphatase 109 U/L (41-126); BUN/Creat Ratio 14.14 Ratio (12.00-20.00); Blood Urea Nitrogen 19.8 mg/dL (9.0-27.0); Carbon Dioxide 25.7 mmol/L (21.6-31.8); Chloride 106 mmol/L (96-109); Globulin 2.3 g/dL (1.6-3.3); Glucose 105 mg/dL (70-110); Potassium 4.4 mmol/L (3.5-5.5); Sodium 142 mmol/L (135-145); Total Bilirubin 0.2 mg/dL (0.3-1.2); Total Protein 6.3 g/dL (6.2-8.2)
[2023-09-09] MEDS: LORATADINE 10 MG TAB PO SCH (09:25)
[2023-09-09] MEDS: SACUBITRIL/VALSARTAN 49 MG-51 MG TABLET PO SCH (09:25)
[2023-09-09] MEDS: DULoxetine HCL 30 MG CAPSULE.DR PO SCH (09:25)
--- NOTE | 2023-09-09 10:17 | P.CRDCN ---
History of Present Illness History of present illness: HISTORY OF PRESENTING ILLNESS This is a pleasant 78-year-old with past medical history significant for ischemic cardiomyopathy status post AICD, CAD status post PCI, hypertension, hyperlipidemia, neuropathy. He follows in office with Dr. Lares. Overall he has been feeling well however yesterday he had 2 episodes approximate 4 hours apart where he had syncopal episodes while standing. He states he has not eaten or drank much the last few days secondary does not having much of an appetite. Denies any fevers or chills. He initially was walking a short distance and then started to feel lightheaded and tunnel vision and then had a syncopal episode blacking out. He then had a second episode approximately 4 hours later and therefore called EMS. Apparently his blood pressure is in the 80s over 60s on arrival of the EMS. He states currently he is feeling back to normal. Denies any chest pain or pressure. EKG showing normal sinus rhythm with nonspecific T- wave inversions in lead 2 and aVF as well as V5 V6 with Q waves anteriorly. D- dimer is elevated and therefore CT PE protocol was performed which showed no PE. REVIEW OF SYSTEMS At the time of my exam: CONSTITUTIONAL: Denies fever or chills. CARDIOVASCULAR: Denies chest pain, shortness of breath, orthopnea, PND or pa lpitations. RESPIRATORY: Denies cough. GASTROINTESTINAL: Denies abdominal pain, diarrhea, constipation, nausea or vomiting. MUSCULOSKELETAL: Denies myalgias. NEUROLOGIC: Denies numbness, tingling or weakness. ENDOCRINE: Denies fatigue, weight change, polydipsia or polyurina. GENITOURINARY: Denies burning, hematuria or urgency with micturation. HEMATOLOGIC: Denies history of anemia or bleeding. PHYSICAL EXAMINATION Vital signs reviewed. CONSTITUTIONAL: No apparent distress. HEENT: Head is normocephalic. Pupils are equal, round. Sclerae anicteric. Mucous membranes of the mouth are moist. No JVD. No carotid bruit. CHEST EXAMINATION: Lungs are clear to auscultation. No chest wall tenderness is noted on palpation or with deep breathing. HEART EXAMINATION: Regular rate and rhythm. S1, S2 heard. No murmurs, gallops or rub. ABDOMEN: Soft, nontender. Positive bowel sounds. EXTREMITIES: 2+ peripheral pulses, no lower extremity edema and no calf tenderness. NEUROLOGIC EXAMINATION: Patient is awake, alert and oriented x3. ASSESSMENT Syncope, appears more related to hypotension with blood pressure 80/60 on EMS arrival. May be exacerbated by decreased appetite recently History of cardiomyopathy status post AICD CAD status post PCI, troponin is normal no signs or symptoms suggestive of ischemia Hypertension PLAN Workup thus far has been unrevealing with normal troponins, no PE noted on CT. Check defibrillator interrogation to rule out any significant arrhythmia. Most this a however appears related to hypotension and we will decrease Entresto to 49/51. Check 2-D echo. Likely monitor for 24 hours and if blood pressure stable and echo unrevealing patient discharge. Past Medical History Past Medical History: Hearing Disorder / Deafness, Hyperlipidemia, Hypertension, Myocardial Infarction ([place]), Osteoarthritis (OA), Sleep Apnea/CPAP/BIPAP Additional Past Medical History / Comment(s): Pt admitted to [facility] 12/09/15 with nonstemi-PTCA with stent to LAD, EF 20-25% with life vest, another stent to RCA 12/31/15. Back Pain. IGOR, USES CPAP. Allergic Rhinitis. 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 Last Myocardial Infarction Date:: 12/09/15 History of Any Multi-Drug Resistant Organisms: None Reported Past Surgical History: Appendectomy, Back Surgery, Heart Catheterization With Stent, Orthopedic Surgery Additional Past Surgical History / Comment(s): 12/31/15 PTCA with stent to RCA. Other surgical hx: Back surgery x 3-fusion, bronchoscopy, colonosocpy, 12-09-15 heart cath with stent to lad, bilateral shoulder rotator cuff repairs Past Anesthesia/Blood Transfusion Reactions: No Reported Reaction Date of Last Stent Placement:: 12/31/15 Past Psychological History: Depression, Panic Disorder Smoking Status: Former smoker Past Alcohol Use History: Occasional Past Drug Use History: None Reported - Past Family History Father Family Medical History: Cancer Additional Family Medical History / Comment(s): pancreatic cancer Mother Family Medical History: Cancer, Diabetes Mellitus Medications and Allergies Home Medications Medication Instructions Recorded Confirmed Type Cyclobenzaprine [Flexeril] 10 mg PO HS 07/23/23 09/08/23 History DULoxetine HCL [Cymbalta] 30 mg PO DAILY 07/23/23 09/08/23 History Furosemide [Lasix] 20 mg PO DAILY 07/23/23 09/08/23 History Gabapentin [Neurontin] 400 mg PO BID 07/23/23 09/08/23 History Loratadine [Claritin] 10 mg PO DAILY 07/23/23 09/08/23 History Prazosin HCl [Minipress] 2 mg PO HS 07/23/23 09/08/23 History Sacubitril/Valsartan [Entresto 97 1 tab PO BID 07/23/23 09/08/23 History mg-103 mg Tablet] Spironolactone [Aldactone] 25 mg PO DAILY 07/23/23 09/08/23 History Allergies Allergy/AdvReac Type Severity Reaction Status Date / Time No Known Allergies Allergy Verified 09/08/23 20:26 Physical Exam Vitals: Vital Signs Temp Pulse Pulse Resp BP BP BP 09/09/23 07:58 97.8 F 59 L 16 09/09/23 05:25 97.4 F L 65 14 131/87 09/09/23 02:44 57 L 16 118/60 09/08/23 18:45 115/63 102/59 09/08/23 17:48 98.1 F 76 16 100/56 BP Pulse Ox 09/09/23 07:58 134/82 97 09/09/23 05:25 96 09/09/23 02:44 98 09/08/23 18:45 114/62 09/08/23 17:48 97 Intake and Output 09/08/23 09/09/23 09/09/23 22:59 06:59 14:59 Intake Total 980 118 Balance 980 118 Intake: Intake, IV Titration 500 Amount Sodium Chloride 0.9% 500 500 ml 500 ml @ 999 mls/hr IV .Q31M ONE Rx#:[id number] Oral 480 118 Other: # Voids 1 Weight 83.915 kg Results 09/09/23 06:40 09/09/23 06:40 Cardiac Enzymes 09/08/23 09/08/23 09/09/23 Range/Units 18:23 18:23 06:40 AST 18 12 L (17-59) U/L Troponin I <0.012 (0.000-0.034) ng/mL Coagulation 09/08/23 Range/Units 18:23 PT 10.9 (10.0-12.5) sec APTT 23.7 (22.0-30.0) sec CBC 09/08/23 09/09/23 Range/Units 18:23 06:40 WBC 7.6 7.55 (3.8-10.6) k/uL RBC 4.25 L 4.32 L (4.30-5.90) m/uL Hgb 13.3 13.2 (13.0-17.5) gm/dL Hct 40.6 40.5 (39.0-53.0) % Plt Count 170 172 (150-450) k/uL Comprehensive Metabolic Panel 09/08/23 09/09/23 Range/Units 18:23 06:40 Sodium 136 L 142 (137-145) mmol/L Potassium 4.8 4.4 (3.5-5.1) mmol/L Chloride 103 106 (98-107) mmol/L Carbon Dioxide 27 25.7 (22-30) mmol/L BUN 26 H 19.8 (9-20) mg/dL Creatinine 1.21 1.4 (0.66-1.25) mg/dL Glucose 128 H 105 (74-99) mg/dL Calcium 8.7 9.0 (8.4-10.2) mg/dL AST 18 12 L (17-59) U/L ALT 9 6 L (4-49) U/L Alkaline Phosphatase 75 109 (38-126) U/L Total Protein 6.3 6.3 (6.3-8.2) g/dL Albumin 3.7 4.0 (3.5-5.0) g/dL Current Medications Generic Name Dose Route Start Last Admin Trade Name Darienq PRN Reason Stop Dose Admin Acetaminophen 650 mg 09/08/23 20:23 Acetaminophen Tab 325 Mg Tab PO Q6HR PRN Mild Pain or Fever > 100.5 Cyclobenzaprine HCl 10 mg 09/08/23 21:00 09/08/23 21:25 Cyclobenzaprine 10 Mg Tab PO 10 mg HS CARA Administration Duloxetine HCl 30 mg 09/09/23 09:00 09/09/23 09:25 Duloxetine Hcl 30 Mg Capsule.Dr PO 30 mg DAILY CARA Administration Famotidine 20 mg 09/10/23 09:00 Famotidine 20 Mg Tab PO DAILY CARA Gabapentin 400 mg 09/08/23 21:00 09/09/23 09:25 Gabapentin 400 Mg Cap PO 400 mg BID CARA Administration Loratadine 10 mg 09/09/23 09:00 09/09/23 09:25 Loratadine 10 Mg Tab PO 10 mg DAILY CARA Administration Naloxone HCl 0.2 mg 09/08/23 20:23 Naloxone 0.4 Mg/Ml 1 Ml Vial IV Q2M PRN Opioid Reversal Sacubitril/Valsartan 1 each 09/09/23 09:00 09/09/23 09:25 Sacubitril/Valsartan 49 Mg-51 Mg Tablet PO 1 each BID CARA Administration Intake and Output 09/08/23 09/09/23 09/09/23 22:59 06:59 14:59 Intake Total 980 118 Balance 980 118 Intake: Intake, IV Titration 500 Amount Sodium Chloride 0.9% 500 500 ml 500 ml @ 999 mls/hr IV .Q31M ONE Rx#:[id number] Oral 480 118 Other: # Voids 1 Weight 83.915 kg 09/09/23 06:40 09/09/23 06:40
--- NOTE | 2023-09-09 12:19 | CA ---
Transthoracic Echo Report Name: Clay Ndiaye Age: 78 Gender: M : 1945 Exam Date: 09/09/2023 08:32 Exam Location: [facility] Ht (in): 68 Wt (lb): 185 Ordering Physician: Héctor Schreiber DO ([email or web address]) Attending/Referring Phys: Electrician Journeyman Wireman Sara Cadena RDCS Procedure CPT: Indications: Syncope Cardiac Hx: Technical Quality: Technically difficult study Contrast 1: Definity Total Dose (mL): 2 Contrast 2: Total Dose (mL): MEASUREMENTS (Male / Female) Normal Values 2D ECHO LV Diastolic Diameter PLAX 3.9 cm 4.2 - 5.9 / 3.9 - 5.3 cm LV Systolic Diameter PLAX 2.6 cm IVS Diastolic Thickness 1.6 cm 0.6 - 1.0 / 0.6 - 0.9 cm LVPW Diastolic Thickness 1.4 cm 0.6 - 1.0 / 0.6 - 0.9 cm LV Relative Wall Thickness 0.8 LVOT Diameter 2.1 cm LV Diastolic Volume MOD BP 122.7 cm??? 67 - 155 / 56 - 104 cm??? LV Systolic Volume MOD BP 51.5 cm??? 22 - 58 / 19 - 49 cm??? LV Ejection Fraction MOD BP 58.0 % >= 55 % LV Cardiac Index MOD BP 2284.7 cm???/min???m??? LV Diastolic Volume MOD 4C 124.5 cm??? LV Systolic Volume MOD 4C 53.9 cm??? LV Ejection Fraction MOD 4C 56.7 % LV Cardiac Index MOD 4C 2265.3 cm???/min???m??? LV Diastolic Length 4C 8.9 cm LV Systolic Length 4C 7.9 cm LV Diastolic Volume MOD 2C 116.6 cm??? LV Systolic Volume MOD 2C 46.0 cm??? LV Ejection Fraction MOD 2C 60.6 % LV Cardiac Index MOD 2C 2265.6 cm???/min???m??? LV Diastolic Length 2C 8.5 cm LV Systolic Length 2C 7.4 cm LA Volume 63.2 cm??? 18 - 58 / 22 - 52 cm??? LA Volume Index 31.2 cm???/m??? 16 - 28 cm???/m??? Ascending Aorta Diameter 3.6 cm DOPPLER AV Peak Velocity 140.3 cm/s AV Peak Gradient 7.9 mmHg AV Mean Velocity 97.5 cm/s AV Mean Gradient 4.3 mmHg AV Velocity Time Integral 25.0 cm LVOT Peak Velocity 87.6 cm/s LVOT Peak Gradient 3.1 mmHg LVOT Velocity Time Integral 17.0 cm LVOT Stroke Volume 58.6 cm??? LVOT Stroke Volume Index 29.6 ml/m??? LVOT Cardiac Index 1881.2 cm???/min???m??? AV Area Cont Eq vti 2.3 cm??? AV Area Cont Eq pk 2.1 cm??? MV Area PHT 4.3 cm??? Mitral E Point Velocity 31.1 cm/s Mitral A Point Velocity 51.5 cm/s Mitral E to A Ratio 0.6 MV Deceleration Time 178.0 ms FINDINGS Left Ventricle Left ventricular ejection fraction is estimated at 45-50 %. Moderately increased septal wall thickness. Left ventricular cavity size normal. No obvious regional wall motion abnormalities. Right Ventricle Normal right ventricular size with mildly reduced function. Unable to estimate the right ventricular systolic pressure. Right Atrium Normal right atrial size. Pacemaker noted. Left Atrium Mildly increased left atrial volume. Mitral Valve Structurally normal mitral valve. No evidence for mitral valve prolapse. No mitral stenosis. Trace to mild mitral regurgitation. Aortic Valve Aortic valve not well visualized. Aortic valve sclerosis. No aortic stenosis. Mild aortic regurgitation. Tricuspid Valve Structurally normal tricuspid valve. No tricuspid stenosis. No tricuspid regurgitation. Pulmonic Valve Pulmonic valve not well visualized. Pericardium No pericardial effusion. Aorta Normal size aortic root and proximal ascending aorta. CONCLUSIONS Left ventricular ejection fraction 45-50% Moderate increased left ventricular wall thickness Trace to mild mitral regurgitation Mild aortic regurgitation Previewed by: Dr. Héctor Schreiber DO (Electronically Signed) Final Date: 09 September 2023 12:18
[2023-09-09] MEDS: PANTOPRAZOLE 40 MG/10 ML VIAL IVP SCH (12:31)
--- NOTE | 2023-09-09 17:08 | P.HPIM ---
History of Present Illness H&P Date: 09/09/23 Chief Complaint: Syncope This is a 78-year-old gentleman with past medical history significant for ischemic cardiomyopathy, AICD, CAD, [place], hypertension, neuropathy, panic disor john, former nicotine dependence and multiple other medical issues transported to the ER via EMS. Patient reports he passed out 2 times, 4 hours apart. The first time, blacked out, he felt as though he may have tripped, the second time he was walking to the kitchen for glass of water, blacked out. Upon awakening he called the EMS. EMS reported a blood pressure in the 80s over 60s. denies nausea vomiting or diarrhea. Denies diaphoresis. Denies dizziness. Denies chest pain, palpitations or shortness of breath. EKG reported sinus rhythm, nonspecific T wave inversions denies edema. Reports last pacemaker interrogation was approximately 1 year ago. He reports no further blackouts and feels well this morning. Evaluated by cardiology, Entresto dose decreased. Echo pending. Pacemaker i nterrogation pending. Chest x-ray reporting cardiomegaly, mild pulmonary vascular congestion. D-dimer elevated, chest CTA reported no evidence of pulmonary embolism, emphysematous changes primarily localized to the central aspect left lower lobe, strandy opacities peripheral to this favored to represent scarring or atelectasis over infiltrate. Near complete right middle lobe atelectasis. Mild cardiomegaly, severe coronary arterial calcification, AICD in place. Review of Systems ROS Statement: Those systems with pertinent positive or pertinent negative responses have been documented in the HPI. ROS Other: All systems not noted in ROS Statement are negative. Past Medical History Past Medical History: Hearing Disorder / Deafness, Hyperlipidemia, Hypertension, Myocardial Infarction ([place]), Osteoarthritis (OA), Sleep Apnea/CPAP/BIPAP Additional Past Medical History / Comment(s): Pt admitted to [facility] [place] 12/09/15 with nonstemi-PTCA with stent to LAD, EF 20-25% with life vest, another stent to RCA 12/31/15. Back Pain. IGOR, USES CPAP. Allergic Rhinitis. 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 Last Myocardial Infarction Date:: 12/09/15 History of Any Multi-Drug Resistant Organisms: None Reported Past Surgical History: Appendectomy, Back Surgery, Heart Catheterization With Stent, Orthopedic Surgery Additional Past Surgical History / Comment(s): 12/31/15 PTCA with stent to RCA. Other surgical hx: Back surgery x 3-fusion, bronchoscopy, colonosocpy, 12-09-15 heart cath with stent to lad, bilateral shoulder rotator cuff repairs Past Anesthesia/Blood Transfusion Reactions: No Reported Reaction Date of Last Stent Placement:: 12/31/15 Past Psychological History: Depression, Panic Disorder Smoking Status: Former smoker Past Alcohol Use History: Occasional Past Drug Use History: None Reported - Past Family History Father Family Medical History: Cancer Additional Family Medical History / Comment(s): pancreatic cancer Mother Family Medical History: Cancer, Diabetes Mellitus Medications and Allergies Home Medications Medication Instructions Recorded Confirmed Type Cyclobenzaprine [Flexeril] 10 mg PO HS 07/23/23 09/08/23 History DULoxetine HCL [Cymbalta] 30 mg PO DAILY 07/23/23 09/08/23 History Furosemide [Lasix] 20 mg PO DAILY 07/23/23 09/08/23 History Gabapentin [Neurontin] 400 mg PO BID 07/23/23 09/08/23 History Loratadine [Claritin] 10 mg PO DAILY 07/23/23 09/08/23 History Prazosin HCl [Minipress] 2 mg PO HS 07/23/23 09/08/23 History Spironolactone [Aldactone] 25 mg PO DAILY 07/23/23 09/08/23 History Sacubitril/Valsartan [Entresto 49 1 each PO BID #30 tab 09/10/23 Rx mg-51 mg Tablet] Allergies Allergy/AdvReac Type Severity Reaction Status Date / Time No Known Allergies Allergy Verified 09/08/23 20:26 Physical Exam Vitals: Vital Signs Temp Pulse Pulse Resp BP BP BP 09/09/23 07:58 97.8 F 59 L 16 09/09/23 05:25 97.4 F L 65 14 131/87 09/09/23 02:44 57 L 16 118/60 09/08/23 18:45 115/63 102/59 09/08/23 17:48 98.1 F 76 16 100/56 BP Pulse Ox 09/09/23 07:58 134/82 97 09/09/23 05:25 96 09/09/23 02:44 98 09/08/23 18:45 114/62 07/10/24 17:48 97 Intake and Output 09/08/23 09/09/23 09/09/23 22:59 06:59 14:59 Intake Total 980 118 Balance 980 118 Intake: Intake, IV Titration 500 Amount Sodium Chloride 0.9% 500 500 ml 500 ml @ 999 mls/hr IV .Q31M ONE Rx#:[id number] Oral 480 118 Other: # Voids 1 Weight 83.915 kg VITAL SIGNS: [As above] GENERAL: Alert, oriented x 3, sitting up in chair, no acute distress HEENT: Normocephalic, atraumatic, conjunctivae normal. eyes normal. MMM NECK: Supple, no JVD. No thyroid enlargement. No LNs CARDIOVASCULAR: S1, S2 regular. No murmur RESPIRATION: Breath sounds diminished in the bases. No rhonchi or crackles. No bronchial breathing. ABDOMEN: Soft, nontender . No guarding. no masses palpable. No ascites, No hepatosplenomegaly.Bowel sounds heard. LEGS: No edema. no swelling NERVOUS SYSTEM: Cranial N 2-12 grossly normal. No focal deficits. Strength and sensation grossly intact. Skin: Warm and dry, no rash. Results CBC & Chem 7: 09/09/23 06:40 09/10/23 03:49 Labs: Abnormal Lab Results - Last 24 Hours (Table) 09/08/23 09/08/23 09/08/23 Range/Units 18:23 18:23 18:23 RBC 4.25 L (4.30-5.90) m/uL MPV (9.5-12.2) FL Immature Gran # (0.00-0.04) X 10*3/uL D-Dimer 4.47 H (<0.60) mg/L FEU Sodium 136 L (137-145) mmol/L BUN 26 H (9-20) mg/dL Est GFR (CKD-EPI) (>=60) Glucose 128 H (74-99) mg/dL Total Bilirubin (0.3-1.2) mg/dL AST (14-35) U/L ALT (10-49) U/L 09/09/23 09/09/23 Range/Units 06:40 06:40 RBC 4.32 L (4.30-5.90) m/uL MPV 8.9 L (9.5-12.2) FL Immature Gran # 0.07 H (0.00-0.04) X 10*3/uL D-Dimer (<0.60) mg/L FEU Sodium (137-145) mmol/L BUN (9-20) mg/dL Est GFR (CKD-EPI) 52 L (>=60) Glucose (74-99) mg/dL Total Bilirubin 0.2 L (0.3-1.2) mg/dL AST 12 L (14-35) U/L ALT 6 L (10-49) U/L Assessment and Plan Assessment: Syncope, etiology unclear, suspect related to hypotension, EMS reported blood pressure 80/60 on arrival. Ischemic cardiomyopathy, EF 20-25%, history of AICD CAD, status post PCI Hypertension Chronic systolic CHF Obstructive sleep apnea Gastroesophageal reflux disease Atelectasis Panic disorder Prior nicotine dependence Plan: Continue on current medication resume ,monitoring and symptomatic treatment. Echo pending. Evaluated by cardiology with recommendations noted. Pacemaker interrogation pending. Entresto dose decreased. Increase activity as tolerated. Continue monitoring overnight. discharge planning in progress for tomorrow. Repeat chest x-ray in 1 month. The impression and plan of care has been dictated as directed. : I performed a history and examination of this patient, discussed the same with the dictator. I agree with the dictator's note ,documented as a scribe. Any additional findings or plans will be noted.
[2023-09-10] MEDS: PANTOPRAZOLE 40 MG TABLET PO SCH (06:25)
[2023-09-10 07:37] VITALS: BP 133/82; PULSE 64; RESP 15; TEMP 97.6
[2023-09-10 08:56] LABS: BUN/Creat Ratio 16.13 Ratio (12.00-20.00); Blood Urea Nitrogen 24.2 mg/dL (9.0-27.0); Calcium 8.8 mg/dL (8.7-10.3); Carbon Dioxide 27.4 mmol/L (21.6-31.8); Chloride 104 mmol/L (96-109); Glucose 106 mg/dL (70-110); Potassium 4.9 mmol/L (3.5-5.5); Sodium 139 mmol/L (135-145)
[2023-09-10] MEDS: FAMOTIDINE 20 MG TAB PO SCH (09:46)
--- NOTE | 2023-09-10 11:23 | P.PN ---
Subjective HISTORY OF PRESENTING ILLNESS This is a pleasant 78-year-old with past medical history significant for ischemic cardiomyopathy status post AICD, CAD status post PCI, hypertension, hyperlipidemia, neuropathy. He follows in office with Dr. Lares. Overall he has been feeling well however yesterday he had 2 episodes approximate 4 hours apart where he had syncopal episodes while standing. He states he has not eaten or drank much the last few days secondary does not having much of an appetite. Denies any fevers or chills. He initially was walking a short distance and then started to feel lightheaded and tunnel vision and then had a syncopal episode blacking out. He then had a second episode approximately 4 hours later and therefore called EMS. Apparently his blood pressure is in the 80s over 60s on arrival of the EMS. He states currently he is feeling back to normal. Denies any chest pain or pressure. EKG showing normal sinus rhythm with nonspecific T- wave inversions in lead 2 and aVF as well as V5 V6 with Q waves anteriorly. D- dimer is elevated and therefore CT PE protocol was performed which showed no PE. 09/09 Seen and examined. No chest pain. Lightheadedness has improved. No SOB. Lasix and aldactone have been held and Entresto halved. SBP 120-130's, occasionally higher. PHYSICAL EXAMINATION Vital signs reviewed. CONSTITUTIONAL: No apparent distress. HEENT: Head is normocephalic. Pupils are equal, round. Sclerae anicteric. Mucous membranes of the mouth are moist. No JVD. No carotid bruit. CHEST EXAMINATION: Lungs are clear to auscultation. No chest wall tenderness is noted on palpation or with deep breathing. HEART EXAMINATION: Regular rate and rhythm. S1, S2 heard. No murmurs, gallops or rub. ABDOMEN: Soft, nontender. Positive bowel sounds. EXTREMITIES: 2+ peripheral pulses, no lower extremity edema and no calf tenderness. NEUROLOGIC EXAMINATION: Patient is awake, alert and oriented x3. ASSESSMENT Syncope, appears more related to hypotension with blood pressure 80/60 on EMS arrival. May be exacerbated by decreased appetite recently History of cardiomyopathy status post AICD CAD status post PCI, troponin is normal no signs or symptoms suggestive of ischemia Hypertension PLAN Interrogation without arrhythmia. Echo shows EF 45% similar to in the past. Doing better on decreased dose of BP meds. Stable for DC on entresto 49/51 and hold aldactone. Discussed with patient using Lasix as needed. Close followup with Dr Lares in 1 week. Objective - Vital Signs Vital signs: Vital Signs Temp 97.6 F 09/10/23 07:00 Pulse 64 09/10/23 07:00 Resp 15 09/10/23 07:00 BP 133/82 09/10/23 07:00 Pulse Ox 96 09/10/23 07:00 FiO2 Intake & Output 09/09/23 09/10/23 09/10/23 18:59 06:59 18:59 Intake Total 118 236 Output Total 200 Balance 118 -200 236 Weight 83.915 kg Intake: Oral 118 236 Output: Urine 200 Other: Voiding Method Toilet Toilet # Voids 1 1 - Labs CBC & Chem 7: 09/09/23 06:40 09/10/23 03:49 Labs: Abnormal Lab Results - Last 24 Hours (Table) 09/10/23 Range/Units 03:49 Est GFR (CKD-EPI) 48 L (>=60)
--- NOTE | 2023-09-10 14:48 | P.DS ---
Providers Date of admission: 09/08/23 20:27 Expected date of discharge: 09/10/23 Attending physician: Sam Hawk MD Consults: 09/08/23 20:23 Consult Physician Routine Consulting Provider: Chidi Lares Consult Reason/Comments: syncope Do you want consulting provider notified?: Yes Primary care physician: Vonda Hawk MD Hospital Course: Final Diagnoses: Syncope, etiology unclear, suspect related to hypotension, EMS reported blood pressure 80/60 on arrival. Ischemic cardiomyopathy, EF 20-25%, history of AICD CAD, status post PCI Hypertension Chronic systolic CHF Obstructive sleep apnea Gastroesophageal reflux disease Atelectasis Panic disorder Prior nicotine dependence Hospital course:This is a 78-year-old gentleman with past medical history significant for ischemic cardiomyopathy, AICD, CAD, VA, hypertension, neuropathy, panic disorder, former nicotine dependence and multiple other medical issues transported to the ER via EMS. Patient reports he passed out 2 times, 4 hours apart. The first time, blacked out, he felt as though he may have tripped, the second time he was walking to the kitchen for glass of water, blacked out. Upon awakening he called the EMS. EMS reported a blood pressure in the 80s over 60s. denies nausea vomiting or diarrhea. Denies diaphoresis. Denies dizziness. Denies chest pain, palpitations or shortness of breath. EKG reported sinus rhythm, nonspecific T wave inversions denies edema. Reports last pacemaker interrogation was approximately 1 year ago. He reports no further blackouts and feels well this morning. Evaluated by cardiology, Entresto dose decreased. Echo pending. Pacemaker interrogation pending. Chest x-ray reporting cardiomegaly, mild pulmonary vascular congestion. D-dimer elevated, chest CTA reported no evidence of pulmonary embolism, emphysematous changes primarily localized to the central aspect left lower lobe, strandy opacities peripheral to this favored to represent scarring or atelectasis over infiltrate. Near complete right middle lobe atelectasis. Mild cardiomegaly, severe coronary arterial calcification, AICD in place. 09/10/2023 Entresto dose decreased yesterday, in addition to continuing to hold Lasix and Aldactone .Systolic blood pressure better controlled, ranging from 1 teens to 130s, asymptomatic. Sitting up in chair, no complaints. Denies chest pain, palpitations or shortness of breath. Denies lightheadedness dizziness or focal deficits. Cardiology reporting interrogation without arrhythmia. Echo reported EF 45 to 50%, moderate increased left ventricular wall thickness. Patient has been cleared by cardiology for discharge home today. Patient has been instructed to continue holding his Aldactone and using his Lasix only as needed in addition to decreased dose of Entresto as per cardiology. She will be discharged home today in a stable condition with guarded prognosis. The impression and plan of care has been dictated as directed. : I performed a history and examination of this patient, discussed the same with the dictator. I agree with the dictator's note ,documented as a scribe. Any additional findings or plans will be noted. Patient Condition at Discharge: Stable Plan - Discharge Summary Discharge Rx Participant: No New Discharge Prescriptions: New Sacubitril/Valsartan [Entresto 49 mg-51 mg Tablet] 1 each PO BID #30 tab Continue Prazosin HCl [Minipress] 2 mg PO HS Cyclobenzaprine [Flexeril] 10 mg PO HS Gabapentin [Neurontin] 400 mg PO BID Furosemide [Lasix] 20 mg PO DAILY DULoxetine HCL [Cymbalta] 30 mg PO DAILY Loratadine [Claritin] 10 mg PO DAILY Discontinued Spironolactone [Aldactone] 25 mg PO DAILY Sacubitril/Valsartan [Entresto 97 mg-103 mg Tablet] 1 tab PO BID Discharge Medication List Cyclobenzaprine [Flexeril] 10 mg PO HS 07/23/23 [History] DULoxetine HCL [Cymbalta] 30 mg PO DAILY 07/23/23 [History] Furosemide [Lasix] 20 mg PO DAILY 07/23/23 [History] Gabapentin [Neurontin] 400 mg PO BID 07/23/23 [History] Loratadine [Claritin] 10 mg PO DAILY 07/23/23 [History] Prazosin HCl [Minipress] 2 mg PO HS 07/23/23 [History] Sacubitril/Valsartan [Entresto 49 mg-51 mg Tablet] 1 each PO BID #30 tab 09/10/23 [Rx] Follow up Appointment(s)/Referral(s): Chidi Lares MD [STAFF PHYSICIAN] - 09/20/23 10:30 am (device check and appointment) Zayra Hawk DO [REFERRING] - 1 Week Ambulatory/Diagnostic Orders: Basic Metabolic Panel [LAB.AMB] Time Frame: 3 Days, Location: None Selected Patient Instructions/Handouts: Syncope (DC), Hypotension (DC) Activity/Diet/Wound Care/Special Instructions: Entresto dose decreased, Aldactone remains on hold and patient has been instructed to use Lasix as needed as per cardiology. Discharge Disposition: HOME SELF-CARE
== END 2023-09-10 13:01 | disposition home or self-care (01) ==
LOC: EC 17:46 → 6NMEDSUR 20:27
PROVIDERS: ADMIT Family Medicine; ATTEND Family Medicine
DX: R55 Syncope and collapse (principal); I25.5 Ischemic cardiomyopathy; I50.22 Chronic systolic (congestive) heart failure; I25.2 Old myocardial infarction; I11.0 Hypertensive heart disease with heart failure; I25.10 Atherosclerotic heart disease of native coronary artery without angina pectoris; F41.0 Panic disorder [episodic paroxysmal anxiety]; G47.33 Obstructive sleep apnea (adult) (pediatric); H91.90 Unspecified hearing loss, unspecified ear; E78.5 Hyperlipidemia, unspecified; F32.A Depression, unspecified; K21.9 Gastro-esophageal reflux disease without esophagitis; Z95.810 Presence of automatic (implantable) cardiac defibrillator; Z95.5 Presence of coronary angioplasty implant and graft; Z87.891 Personal history of nicotine dependence; Z83.3 Family history of diabetes mellitus; Z80.0 Family history of malignant neoplasm of digestive organs; Z79.899 Other long term (current) drug therapy
CPT/HCPCS: 96374; 96361; 99285; 36415; 85379; 83880; 80053 ×2; 80048; 83605; 83735; 84484; 85025 ×2; 85610; 85730; 81003; 71046; 71275; G0378 ×3; C8929; Q9957; Q9967; J2470; 93005; 93306